=== PATIENT | male | born 1995 | race Caucasian/White ===

== ENCOUNTER 2021-09-07 08:30 | Outpatient (RCR) | payer BC, SELFPAY ==
--- NOTE | 2021-09-07 09:00 | BH.COMM ---
Communication Note - Communication with Client Communication Note: Met with pt and updated pre-admission screening. Plan to start IOP today. Completed [place] Suicide Scale which shows low risk. Consulted with Dr. Kirkpatrick with plan to admits to IOP with dx of Generalized Anxiety Disorder F41.1
--- NOTE | 2021-09-07 10:05 | BH.SGPN.GN ---
Behaviors/Verbalizations/Mental Status: []Client alert and oriented, casually dressed and groomed. Eye contact fair. Motor activity appropriate. Speech within normal limits. Affect congruent, mood anxious. Thoughts linear, logical, no signs of hallucinations or delusions. Client Response/Progress/Benefit: []Client responded well to session AEB client taking notes and listening attentively to others. Group discussed the origin of coping skills, examples of unhealthy coping, and why we use them. Client participated in experiential activity, and was attentive throughout group processing, taking notes and nodding throughout discussion of the importance of external supports and internal coping skills. Appeared to benefit from increased knowledge of internal coping skills and external supports, as well as increased self awareness.Client will continue IOP treatment to increase anxiety management skills and increase comfortability with being vulnerable. Narrative Note: []
--- NOTE | 2021-09-07 11:10 | BH.SGPN.GN ---
Behaviors/Verbalizations/Mental Status: []Client alert and oriented, casually dressed and groomed. Eye contact good. Motor activity appropriate. Speech within normal limits. Affect constricted, mood anxious and depressed. Thoughts linear, logical, no signs of hallucinations or delusions. Client Response/Progress/Benefit: []Client responded well to session, taking notes and nodding frequently. Group discussed the different categories of coping skills which included distraction, emotional release, grounding, self-love, and thought challenging. Client's coping skill menu included: building/creating things, exercising, walking and hiking, treating himself, and setting and accomplishing small goals. Appeared to benefit from increasing repertoire of healthy coping skills. Client?s first day of IOP tx. Will continue tx to prevent decompensation, gain healthy coping skills, and increase daily functioning. Narrative Note: []
--- NOTE | 2021-09-08 09:00 | BH.SGPN.GN ---
Behaviors/Verbalizations/Mental Status: [] Eye contact is fair. Motor activity is appropriate. Appearance is casual. Speech is Appropriate. Mood is depressed and anxious. Affect is flat. Thoughts are linear and logical. No evidence of psychosis. Reviewed daily check in sheet and no reports of suicidal ideations or intent. Client Response/Progress/Benefit: [] Pt was a passive participant AEB providing limited input. Appeared attentive to others contributions. Pt stated he did not want to share anything today. Pt did state his emotion today is exhausted. Seemed to benefit from listening to other group members input and skills/strategies that have helped them overcome various issues. pt to continue IOP to improve daily functioning, increase healthy coping and prevent decompensation.
--- NOTE | 2021-09-08 10:12 | BH.NA_ITS ---
Physical Data - Vital Signs Pulse Rate: 64 Blood Pressure: 119/76 - Height/Weight Height: 1.75 m Weight:: 61.235 kg Weight in Pounds: 135.0 lbs Current Medication Compliance - Medication Compliance Do you take your medication as prescribed?: Yes Nutritional History - Appetite Nutritional Instructions:: If client shows signs of a swallowing problem, weight change of 10 pounds or more in the last month, or is on a diabetic diet, the physician will review and request a dietitian consult, as appropriate. All unintentional weight loss will be referred to the physician for decision on need for dietitian consult. Describe your appetite:: Good Functional Assessment - Sleep Pattern Describe any problems with sleeping: Client states he sleeps between 6-8 hours per night. - Activities Motor Activity:: Functional Sensory/Communication Assess - Communication Problems Do you have difficulty understanding what people are saying?: No Medical Problems/History - Metabolic Conditions Metabolic: Other (See comments) - Client states he had an episode in 2018 where he passed out at work and had low blood sugar. Client states he has had episodes of low blood sugar since. - Gastrointestinal Conditions Gastrointestinal: Other (See comments) - GERD - Pain Assessment Do you have acute or chronic pain?: No Surgical History - Surgical History Have you had any surgeries? If so, list type and date:: No Substance Abuse - Substance Abuse Please describe substance abuse in the last 30 days:: Client denies alcohol use. Client states he has been using chewing tobacco for about 8-10 years. Client denies substance use. Client reports minimal caffeine use. Mental Status Summary - Mental Status Significant Findings/Observations on Appearance and Mood:: Client is alert and oriented x 4. Client is wearing a mask due to the pandemic. Client is casually groomed with good hygiene. Client makes good eye contact. Client's voice has normal rate and volume. Client appears to have somewhat flat affect and has normal processing. Client denies delusions/hallucinations. Client denies SI. Suicide Assessment - Suicidal Ideation Are you currently or have you been suicidal in the past?: No Suicidal Intentional Rating Scale (SIRS): No suicidal thoughts (past or present) Physician Notification: If Active suicidal thoughts/Will not contract for safety is checked, contact physician and document in the Physician Notification section below. Assault History/Potential Past Psychiatric History - Treatment Hx Past Psychiatric Medications:: Pristiq, Lexapro, Buspar, Hydroxyzine Age of first mental health symptoms: Client states he first had anxiety after passing out at work in 2018 due to low blood sugar. Current providers for mental health treatment (counselor, psychiatrist, case therapist, etc.): psychiatry at [facility] in [place] Risk Assessment - Age Age: Less than 60 - Mental Status Mental Status: Willing & able to ask for assistance when needed - Physical Status Physical Status: No problems - Impairments Impairments: None - Elimination Elimination: Continent AND independent - Gait or Balance Gait or Balance: Walks independently - Hx of Falls History of falls in the past 6 months: No known history - Medications/Substances Psychotropics:: Antidepressants Medications/substances used within the past 24 hours or ordered to administer: 1-2 of the medications/substances listed above - Total Score Total Points:: 1 RN Summary of Impressions - Impressions Recommendations: Include psychiatric and medical issues, treatment planning recommendations, and discharge planning needs. Impressions: Psychiatric Issues: 1. Generalized anxiety disorder. 2. Panic disorder Impression: General Medical Conditions: Client states he discussed low blood sugars with psychiatry and has been spot checking blood sugars at home at times. Client does state when he feels dizzy/shaky, he does eat some fast acting carbs and follows up with food with protein. Client states he has had a blood sugar of 51, most blood sugars he has checked at home on himself have been 80-110. - Level of Care How do the client's current symptoms and functional deficits support need for this level of care?: Client was referred to IOP by PCP with worsening anxiety. Client states he has been off work since March 2021 due to anxiety. Client states he had anxiety in 2018, but for the last couple of years has felt pretty good until he bought a house in March 2021 that gave him financial concerns. Client also discusses that he has had some low blood sugars and he has health anxiety surrounding that. Client states he does not like to go far from home or go places alone due to fear he will have a panic attack or medical issue that he won't be able to deal with alone. Client states he has panic attacks about 3 times a week that last about 30 minutes with increased HR, arms/legs feel numb, sweating and overall tense. Client has been off work since March 2021 for anxiety. Client denies SI. IOP will promote gains and prevent further decompensation while providing social support and skills training.
[2021-09-08 11:20] VITALS: BP 119/76; PULSE 64
--- NOTE | 2021-09-08 12:14 | BH.PSY.EVA_ITS ---
Psychiatric Evaluation Initial Evaluation Initial Evaluation: History of Present Illness: [] The patient is a 26-year-old single male who was referred to the [facility] behavioral health IOP program by his primary care doctor in June 2021. The patient has a history of anxiety which worsens when he is alone or he is far away from the hospital. The patient's mental health issues began in August 2017 when he had decreased blood sugar while at work and this resulted in severe anxiety and hair and a severe first time initial panic attack. The squad was called and the patient has been anxious ever since this initial panic attack and low blood sugar episode. At the time the patient had worked for 48 days straight and was on third shift and was not eating well. Since that time his anxiety has worsened and he has been unable to work and on FMLA from work since March 2021. 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 His job is somewhat isolated at work and he is not comfortable being alone currently. He has had a girlfriend for 2 years who his supportive. He currently lives with his brother while he renovate a house he bought recently. His parents live across the road. The patient tried medications in the past but they had limited benefit. For primary support he has his father. No history of self-harm. His latest stressor is that he is wants to get back to work eventually because he wants to start renovating the house he bought in February 2021. The patient identifies as a Sikhism Mu-Ism and this is a source of support for him. The patient feels that his mood is normal now and he does not feel that he is currently depressed. He denies hopelessness or worthlessness or guilt currently. He has been isolating himself any enjoys hunting and fishing. His appetite and sleep are okay. His energy level is low but his concentration is okay. He denies guilt, passive thoughts of , suicidal ideation, plan for suicide, homicidal ideation, hallucinations, delusions or symptoms of [place] ever. He is a worrier by nature and he was having panic attacks daily until recently when they decreased to 3 times a week. But his panic attacks are triggered when he has to go far away or be somewhere alone. He had to have someone drive with him to the IOP program as it is a [address] and he is afraid to do it by himself. He denies history of OCD, eating disorder, trauma or PTSD. The patient was worried about having heart attacks when he first began having panic attacks but he he has been somewhat reassured about health issues lately. Current Psychiatric Medications: [] Zoloft 50 mg p.o. daily (x5 days); Xanax 0.25 mg as needed for panic attack (has not taken any yet). These meds were obtained from his psychiatrist last week. Past Psychiatric History: [] No psychiatric admissions. No suicide attempts ever. He has a follow-up appointment with his psychiatrist in 6 weeks. He had counseling for 1 visit only in 2020. Past medications were from his primary care doctor and included Pristiq, Lexapro and BuSpar. Lexapro did not help him. Pristiq helped at first but then the dose was too high and he felt too numb. He first took medications at age 23 in 2018 after his initial panic attack trig gered by low blood sugar episode at work. Substance Use History: [] Non-smoker. He does chew tobacco for the past 10 years. No drugs, no alcohol. No vaping no marijuana. No rehab ever. Allergies: [] No known allergies Medications: [] Vitamin D and Juice Plus vitamins plus psych meds as dictated above. Past Medical History: [] Low blood sugar history, vitamin D deficiency, GERD. No surgeries ever. Blood sugar was documented to be 51 when he had his episode in 2018. Family Psychiatric History: [] Mother is 51 years old and father is 53 years old. There are no psychiatric issues known in the family. The patient has a maternal great grandfather who shot himself to complete suicide many years ago. The patient did not know him. No substance issues in the family. Personal/Social History: [] Patient was born and raised in [place] and describes his childhood as great. Her parents his parents were and living. He has a brother 2 years younger and they are close and get along well. He denies any verbal, physical or sexual abuse ever. He did well in school and graduated high school but did not attend college. 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 He has had a few serious girlfriends including including his current girlfriend of 2 years who is supportive. He has no children and no sexual issues. Legal History: [] He has never been arrested. 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 Review of Systems: [] He has a history of some reflux and nausea issues. Vital Signs: [] Reviewed in nurses notes. Mental Status Examination: [] The patient is a 26-year-old male who is seen wearing a mask due to the pandemic and has a somewhat moderately long ascencio. He is casually dressed and groomed with good hygiene and has no psychomotor agitation or retardation. He is cooperative and pleasant during the interview. Eye contact is good and speech is normal rate and rhythm and fluent with no pressure. Mood is anxious and worried. Affect is constricted. Thought process is goal-directed and organized. Thought content: The patient has no evidence of passive thoughts of , suicidal ideation, homicidal ideation, hallucinations or delusions or plan for suicide. The patient is worried about when he will be able to return to work as he wants to get started on renovating the new house he bought. Reality testing is intact. Intelligence is average or above. Judgment is intact. Insight: Some present. Impulsivity: Low. Diagnoses: [] 1. Generalized anxiety disorder 2. Panic disorder 3. Work and health issues Plan: [] The patient will start the IOP program at [facility] in behavioral health as a structure, support, education, and group therapy will hopefully prevent worsening of the patient's symptoms. He felt safe during the interview and if it anytime he does not feel safe he will let us know or go to the emergency room. The risk, options, possible complications and side effects of the medications were discussed with the patient and he understands and accepts these. No medication changes were made today as the patient has only been on his Zoloft for 5 days. Discussion was had about relaxation techniques and other techniques for overcoming panic attacks and anxiety. The patient will continue to follow-up with his outpatient providers and I will see the patient in follow-up in in 1 to 2 weeks.
--- NOTE | 2021-09-08 12:20 | BH.MTP_ITS ---
Master Treatment Plan - Patient Information Program Physician:: Dr. Chel Kirkpatrick Primary Therapist:: RACHELLE Benedict - Psychiatric Diagnoses Psychiatric Diagnoses:: Generalized anxiety disorder, Panic disorder Diagnosis Code(s):: F 41.1 - Estimated LOS Estimated LOS (in weeks):: 6 Problem/Goal #1 - Problem/Goal #1 Stated Goal:: Client will reduce overall frequency, intensity, and duration of anxiety and intrusive health thoughts so that daily functioning is not impaired. Description of Barriers: No prior mental health tx, intrusive thoughts impacting ability to rationally address anxiety triggers, somatic symptoms which heighten pt anxious thought patterns and often contribute to panic, limited insight into anxiety warning signs and triggers. Functional Impact: Pt is a 26-year-old male who was referred to the [facility] behavioral health IOP program by his primary care doctor in June 2021 for worsening anxiety. Reports a history of anxiety which worsens when alone or far from the hospital due to an episode occurring in August 2017 in which pt blood sugar dropped while at work resulting in his first panic attack. Pt reports the squad was called at this time and he has been afraid of something similar recurring since. At the time the patient had worked for 48 days straight and was on third shift and was not eating well. Since that time his anxiety has worsened and he has been unable to work and on FMLA from work since March 2021. Patient reports he tried medications in the past but they had limited benefit. No history of self-harm. His primary stressor is returning to work. Currently endorsing symptoms of panic 3-7x per week, rumination, fear of traveling too far from a hospital, low energy and concentration, current anxiety impeding ability to drive self places, isolation, and intrusive worries about having a heart attack. Current symptoms impeding ability to work, function at baseline, or travel places he typically would due to fears of being too far from hospital. Goal Relevant Strengths/Supports: Receptive of treatment, open to learning new skills and trying different treatment approaches to addressing anxiety, reports motivation to improve symptom management. - Objectives Objective #1 Stated Objective: Client will identify 2-3 anxiety triggers and 2 coping skills to use when feeling anxious to manage anxiety as shown by reducing DSM-5 scores for anxiety. Interventions: Through group and individual sessions, client will gain awareness of his anxiety triggers and learn numerous techniques to manage anxiety symptoms. Therapist will mindfulness and other calming techniques to manage symptoms and increase distress tolerance skills. Discharge Criteria: Client will have met this goal if client can prevent decompensation as evidenced by stability in DSM-5 scores and when he can identify at least 2 triggers and 2 ways to cope with anxiety. Target Date: 10/19/21 Review Date: 10/12/21 Objective #2 Stated Objective: Client will identify 2-3 intrusive/ruminating thoughts and learn 2-3 strategies to overcome, replace, or reduce the value of those thoughts. Interventions: Therapist will help client increase awareness of cognitive distortions, false comfort, and myths about intrusive thoughts. Therapist will encourage client to focus on stressors in her control and teach client distress tolerance techniques. Therapist will utilize distractions, mindfulness, and CBT- based strategies to help client learn how to more effectively manage and cope with her intrusive, health-related thoughts. Therapist will use a workbook to give client homework and exercises to practice. Discharge Criteria: Client will have met this goal when can report least 2 ways to cope with intrusive thoughts that exacerbate anxiety. Target Date: 10/19/21 Review Date: 10/12/21 Objective #3 Stated Objective: Client will reduce avoidance behaviors that reinforce anxiety by setting 1-2 small exposure goals a week to increase socialization, increase mastery, and reduce anxiety over time. Interventions: Through group and individual sessions, client will learn about the benefits of setting exposure goals to overcome anxiety-producing situations. Therapist will help client create a fear-ladder that will act as a guide in confronting anxiety-producing situations. The fear-ladder will go from least anxiety-producing to most anxiety-producing so client can build confidence. Therapist will help client set SMART goals and challenge barriers. Therapist will use cognitive restructuring techniques and help client gain awareness of negative thoughts that reinforce avoidance behaviors and fear of judgement. Therapist will help client incorporate mindfulness, opposite action, and self- talk strategies to manage anxiety. Discharge Criteria: Client will have accomplished this goal when he can report accomplishing at least one small exposure goal a week. Additionally, client will be able to report decreased avoidance behaviors. Target Date: 10/19/21 Review Date: 10/12/21
--- NOTE | 2021-09-08 12:24 | BH.DR.ITP ---
Initial Treatment Plan Patient Information Visit Information: ADMISSION DATE: EXPECTED LOS: 4-6 weeks Problems/Symptoms Problem #1:: Anxiety Symptom:: Worry, panic attacks, avoidance, low energy
--- NOTE | 2021-09-13 16:02 | BH.COMM ---
Communication Note - Communication with Client Communication Note: Client scheduled for both group and individual session on this date; however called to cancel due to testing positive for COVID-19. Client will therefore be out for the week and will be seen for individual session upon his projected return date, 09/20/21.
--- NOTE | 2021-09-20 09:00 | BH.SGPN.GN ---
Behaviors/Verbalizations/Mental Status: []Eye contact is good. Motor activity is appropriate. Appearance is casual. Speech is appropriate. Mood is exhausted. Affect is flat. Thoughts are linear and logical. No evidence of psychosis. Reviewed daily symptom tracker sheet with no reports of suicidal ideations, plan, or intent. Client Response/Progress/Benefit: []Client was engaged throughout group session. Client reported his emotion as ?exhausted?. Client discussed that he took care of his family members when they all had COVID last week as he had mild symptoms, and that he has been feeling overwhelmed. Client struggles to set boundaries with others. Client appeared to benefit from group discussion regarding self care. Client discussed watching tv as self care. Progress noted AEB client reporting utilizing self-care. Will continue IOP treatment to increase utilization of self care and increase healthy boundary setting to improve overall functioning. Narrative Note: []
--- NOTE | 2021-09-20 10:05 | BH.SGPN.GN ---
Behaviors/Verbalizations/Mental Status: []Client alert and oriented, casually dressed and groomed. Eye contact fair. Motor activity appropriate. Speech within normal limits. Affect constricted, mood anxious. Thoughts linear, logical, no signs of hallucinations or delusions. Client Response/Progress/Benefit: []Pt was a semi-active participant in group discussion, taking notes but providing limited input throughout. Attentive during psychoeducation on communication styles. Along with peers, pt participated in providing insight into the benefits to effective communication on mental health which included; helps us get needs met, resolves problems, improves relationships, maintains boundaries, and prevents additional conflict. Pt identified he is most often a passive communicator. Pt stated this keeps him from asking for help and will isolate. Benefited from increased awareness of different communication barriers, styles, and the importance of communicating effectively to improve mental wellness. Will continue IOP tx to increase healthy coping skills, decrease anxiety and prevent decompensation.
--- NOTE | 2021-09-20 11:05 | BH.SGPN.GN ---
Behaviors/Verbalizations/Mental Status: []Client alert and oriented, casually dressed and groomed. Eye contact fair. Motor activity appropriate. Speech within normal limits-soft. Affect constricted, mood anxious. Thoughts linear, logical, no signs of hallucinations or delusions. Client Response/Progress/Benefit: []Pt was an active participant in group discussion. Attentive during psychoeducation on communication styles (Passive, Passive-Aggressive, Aggressive, and Assertive) and benefits/disadvantages to each style. Pt reflected on how his passive communication style has impacted his mental health and relationships. Participated in the group activity and learned DEAR MAN skill. Pt reports wanting to work on the negotiate component of this skill by looking at the facts and being willing to compromise. Benefited from learning DEAR MAN and setting a goal to improve communication. Will continue IOP tx to prevent decompensation, reduce avoidance, and increase communication skills. Narrative Note: []
--- NOTE | 2021-09-20 13:21 | BH.COMM ---
Communication Note - Communication with Client Communication Note: Unable to meet individually with client as this therapist has tested positive for COVID-19 and therefore will be in quarantine until 09/30/20. Therapist to work remotely and Pt given option to meet via telehealth during that time. Will follow-up to schedule accordingly.
--- NOTE | 2021-09-22 12:40 | BH.PSA ---
Source of Information - Presenting Problems/Circumstances Problems, Referral Source, Mental Status, Client: Pt is a 26-year-old male who was referred to the [facility] behavioral health IOP program by his primary care doctor in June 2021 for worsening anxiety. Psychiatric Presentation - Psych Issues & Need for Admission Psychiatric Issues:: Anxiety, rumination, panic Past Psychiatric History - MH Treatment Hx Treatment History: He had counseling for 1 visit only in 2020, denies this being helpful. Does see an outpatient psychiatrist. Pt denies inpatient hospitalization but has been seen at the ER for panic in the past First hospitalization:: denies Most recent hospitalization:: denies Medication Trials:: Yes - pristiq ECT Therapy:: No Age of first mental health symptoms: age 23 in 2018 after his initial panic attack triggered by low blood sugar Development & Family of Origin - Childhood Significant Childhood Events: Reports childhood as positive and supportive. Denies any abuse or trauma hx. The patient has a maternal great grandfather who shot himself to complete suicide many years ago. The patient did not know him. - Family Who currently lives in your home?: Lives with his brother, 2 years younger, while pt completes renovations on a home he recently purchased. Describe family composition:: Patient was born and raised in [place] and describes his childhood as great. His parents are and living. He has a brother 2 years younger and they are close and get along well. Has a current girlfriend of 2 years. - Family History Family Hx of Psychiatric or AOD Problems: There are no psychiatric issues known in the family. The patient has a maternal great grandfather who shot himself to complete suicide many years ago. The patient did not know him. No substance issues in the family. Ethnicity - Culture Do you identify yourself with any particular cultural, ethnic background, or community?: No - Sexuality Sexual Orientation: Heterosexual Spirituality - Rastafarian Do you currently identify with any organized pentecostal?: Latter-Day - Beliefs Is there a particular form of support from this community you can use for your recovery?: Yes Mental Status - Memory Recent Memory: Good Remote Memory: Fair - Concentration Concentration: Fair - Eye Contact Eye Contact: Good - Speech Speech: Congruent - Thought Process Thought Process: Logical Insight: Fair Judgment: Fair Behavior: Anxious - Orientation Orientation: Time, Person, Place, Situation - Appearance Appearance: Appropriate - Mood Mood: Anxious - Affect Affect: Appropriate/calm Suicide Assessment - Suicidal Ideation Have you ever felt like hurting yourself?: No Were you using ETOH/drugs at the time?: No Suicidal Intentional Rating Scale (SIRS): No suicidal thoughts (past or present) Physician Notification: If Active suicidal thoughts/Will not contract for safety is checked, contact physician and document in the Physician Notification section below. Violent Behavior/Abuse History - Homicidal Ideation Do you have any homicidal thoughts? If so, explain:: No Is there a known potential victim? If yes, who:: No - Abuse Have you ever been abused?: No - Life Events Are there any other significant life events?: Financial loss - currently on FMLA due to anxiety, Hardships - panic attack impacting ability to work - Safety Do you ever feel threatened in your home? If yes, describe:: No Adult Social History - Age 18 to Present Describe your current support system:: Reports his family, girlfriend, adventism, and some close friends as supports Substance Use - Substance Substance Use Type: Tobacco - has chewed tobacco for the past 10 years, Caffeine - IV Substance Use Do you have a history of IV use?: Denies Leisure/Social Activities - Interests What do you enjoy or might be interested in learning about?: Skills for better managing anxiety, reports interests in hunting, fishing, and being outdoors Education & Occupational Histo - Education What is your level of education?: High School Do you have any learning disabilities?: No - Occupation List any current or past employment:: 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 If yes, describe:: No - Court Orders Have you had any past court orders for psychiatric treatment?: No Do you have a present court order for psychiatric treatment?: No Problem Checklist - Current Problem Areas Problem List: Anxiety, Additional psychosocial stressors - somatic related stressors, worry about returning t o work Discharge Planning Needs - Anticipated Follow-Up Family and Caregiver Contacts:: Tiff Colón, Mother Release of Information Signed:: Yes Carbide Operator's Assessment - Client's Needs What are the client's feelings about the program?: Reports feeling the program has been helpful so far and that he is looking forward to learning more about his mental health and better understanding how ton manage his anxiety so that it is not impacting his daily functioning. What are the client's goals?: Better understand and learn skills for managing anxiety, return to work Diagnoses - Diagnoses Diagnosis #1:: Generalized Anxiety Disorder Diagnosis #2:: Panic Disorder Interpretive Summary - Interpretive Summary Interpretive Summary: Pt is a 26-year-old male who was referred to the [facility] behavioral health IOP program by his primary care doctor in June 2021 for worsening anxiety. Reports a history of anxiety which worsens when alone or far from the hospital due to an episode occurring in August 2017 in which pt blood sugar dropped while at work resulting in his first panic attack. Pt reports the squad was called at this time and he has been afraid of something similar recurring since. At the time the patient had worked for 48 days straight and was on third shift and was not eating well. Since that time his anxiety has worsened and he has been unable to work and on FMLA from work since March 2021. Patient reports he tried medications in the past but they had limited benefit. No history of self-harm. His primary stressor is returning to work. Currently endorsing symptoms of panic 3-7x per week, rumination, fear of traveling too far from a hospital, low energy and concentration, current anxiety impeding ability to drive self places, isolation, and intrusive worries about having a heart attack. Current symptoms impeding ability to work, function at baseline, or travel places he typically would due to fears of being too far from hospital. Treatment Plan Recommendations - Recommendations Guidelines: Special needs identified to be included in the development of an individualized treatment plan regarding past psychiatric history and treatment, developmental events, family relationships/events/culture, past and/or current educational, occupational, social, and residential experience, and legal status. Recommendations:: Client will have accomplished this goal when he can report accomplishing at least one small exposure goal a week. Additionally, client will be able to report decreased avoidance behaviors.
== END 2021-09-20 23:59 ==
LOC: BHIOP 08:30
PROVIDERS: Visit Provider Psychiatry & Neurology Psychiatry
DX: F41.1 Generalized anxiety disorder (principal)
CPT/HCPCS: S9480; 90853

== ENCOUNTER 2021-09-21 07:31 | Outpatient (RCR) | payer BC, SELFPAY ==
[2021-09-21 00:49] VITALS: BP 119/76; PULSE 64
--- NOTE | 2021-09-21 09:00 | BH.SGPN.GN ---
Behaviors/Verbalizations/Mental Status: []Eye contact is good. Motor activity is appropriate. Appearance is casual. Speech is Appropriate. Mood is euthymic, slightly anxious. Affect is congruent. Thoughts are linear and logical. No evidence of psychosis. Reviewed daily check in sheet and no reports of suicidal ideations or intent. Client Response/Progress/Benefit: []Pt was an active participant in group discussion. Attentive. Provided appropriate feedback. Pt identified mental health positive as having decreased anxiety yesterday and this morning. Pt stated driving is an anxiety trigger but since driving to IOP several times now he reported his anxiety seems to be improving. Pt reported stressors are money issues because has been off work since March due to his anxiety. Progress noted AEB pt reporting noticing mild decrease in anxiety when driving to IOP. Benefited from group support and encouragement. Pt to continue IOP to increase anxiety management skills, assist pt with learning tools to help him return to work and prevent decompensation.
--- NOTE | 2021-09-21 10:07 | BH.SGPN.GN ---
Behaviors/Verbalizations/Mental Status: [] Client alert and oriented, casually dressed and groomed. Eye contact good. Motor activity appropriate. Speech within normal limits. Affect congruent, mood anxious and depressed. Thoughts linear, logical, no signs of hallucinations or delusions. Client Response/Progress/Benefit: [] Pt continues to appear anxious about being in the group setting, however did well to remain engaged throughout. Pt was taking notes, listening attentively, and providing some input throughout. Attentive during psychoeducation and discussed the importance of goal-setting with the group. Pt indicated ?Goals help you see progress?. Group identified potential benefits of having goals include: they motivate, increase self-esteem, provide a sense of accomplishment, help feel more positive, lead to personal growth, and provide a sense of purpose. Group also worked together to identify barriers to goal-setting which included; negative self-talk, lack of motivation, fear of failure, unrealistic expectation, and past negative experiences. Pt identified personal barrier to include not having ?enough time? or external triggers. Benefited from increased awareness of benefits and barriers to goal-setting. Pt will continue in IOP to prevent decompensation, learn healthy coping skills for improving mood management, and improve daily functioning. Narrative Note: []
--- NOTE | 2021-09-21 11:13 | BH.SGPN.GN ---
Behaviors/Verbalizations/Mental Status: Client alert, oriented, casually dressed and groomed. Eye contact fair to good. Motor activity appropriate. Speech within normal limits. Affect constricted, mood depressed and anxious. Thoughts linear, logical, no signs of hallucinations or delusions.[] Client Response/Progress/Benefit: [] Pt was a active participant in group discussions and activities. Engaged in activity and able to make connections with goal setting in daily life. Was willing to complete the goal setting worksheet provided. Pt identified a SMART goal for the next week is: Take time to listen to a podcast, reflect on daily wins, and plan for the next day each night before bed over the next week. Pt reported this would benefit her by improving positivity at the end of the day, reduce anxiety in the morning, and feeling more organized. Identified stress and not prioritizing it as potential barriers. Pt able to identify several solutions that can help overcome identified barriers such as: thought challenging, planning time ahead, and reminding himself of the benefits. Benefited from group by being able to utilize SMART formula to create a goal. Pt to continue IOP to stabilize moods, increase healthy coping skills and self-confidence, improve stress managemnt, and prevent decompensation. Narrative Note: []
--- NOTE | 2021-09-22 09:03 | BH.SGPN.GN ---
Behaviors/Verbalizations/Mental Status: []Eye contact is good. Motor activity is appropriate. Appearance is casual. Speech is appropriate. Mood is anxious. Affect is flat. Thoughts are linear and logical. No evidence of psychosis. Reviewed daily symptom tracker sheet with no reports of suicidal ideations, plan, or intent. Client Response/Progress/Benefit: []Client was engaged throughout group session, sharing and listening attentively to others. Client reported his emotion of the day as ?overwhelmed?. Client stated that he is working on a house that needs to be completely redone, and taking care of his family members. Client struggles to set boundaries with supports. Progress noted AEB client stating that he set a bedtime and will not accept calls past his bedtime. Client reports watching a show after going to his room for bed as self care. Appeared to benefit from group discussion regarding boundary setting. Will continue IOP treatment to increase boundary setting and healthy communication skills to increase daily functioning. Narrative Note: []
--- NOTE | 2021-09-22 10:10 | BH.SGPN.GN ---
Behaviors/Verbalizations/Mental Status: []Eye contact is good. Motor activity is appropriate. Appearance is casual. Speech is Appropriate. Mood is anxious. Affect is congruent. Thoughts are linear and logical. No evidence of psychosis. Client Response/Progress/Benefit: []Engaged in experiential activity with peers. Passive participant in group discussion. Attentive during psychoeducation on what is social support, the benefits of social support, and the things that keep us from utilizing social support for mental wellness. Attentive during interaction discussion and feedback from peers on these subjects AEB head nodding and note-taking. Pt identified social support can provide a healthy distraction at times. Able to see connection between experiential activity and group topic. Benefited from increased awareness of the benefits of social support in maintain mental health. Will continue in IOP to decrease anxious symptoms, assist pt with returning to work successfully, continue use of healthy coping skills and prevent decompensation. Narrative Note: []
--- NOTE | 2021-09-22 11:10 | BH.SGPN.GN ---
Behaviors/Verbalizations/Mental Status: []Client alert and oriented, casually dressed and groomed. Eye contact good. Motor activity appropriate. Speech within normal limits-soft. Affect constricted, mood anxious. Thoughts linear, logical, no signs of hallucinations or delusions. Client Response/Progress/Benefit: []Client was an active participant throughout AEB contributing to discussion, providing personal examples, and taking notes. Client did well to relate group topic and activity back to own experiences. Client provided input during discussion on the types of support our supports can provide. Client reports wanting to work on increasing social supports, noting this will give client a distraction, increase motivation, and improve communication. Client plans to improve this support area by finding a group of archers in the area, going camping with friends, and joining a gym. Client seemed to benefit from identifying the type of support and how this support will aid in promoting overall mental wellness. Will continue IOP tx to prevent decompensation, increase interpersonal relationship skills, and reduce negative thinking patterns. Narrative Note: []
--- NOTE | 2021-09-22 11:39 | PCM.BH.PN ---
Progress Note Progress Note: History of Present Illness/Interim History: The patient is a 26-year-old single male with a history of anxiety who is seen in follow-up at the [facility] behavioral health IOP program. I last saw the patient 2 weeks ago. The patient had Covid last week so he was not here but he said that he had overall very mild symptoms from the Covid and that he was anxious and worried about getting Covid but he actually ended up doing fine. Mental health issues continue with the anxiety but he says he feels that he is a little bit better than he was 2 weeks ago. He still very anxious and worried especially in the morning. He still having panic attacks a few times a week. 1 in his wallet and this is hel He has only taken 1 Xanax in the last 2 weeks[address]ped him be able to drive places because he knows he has it in case he gets a severe panic attack. He has been carrying the Xanax His mood remains euthymic. Appetite and sleep are okay. what he describes as He denies passive thoughts of , suicidal ideation, homicidal ideation, hallucinations, delusions. His panic attacks continue to be more likely to be triggered when he has to drive somewhere along or be somewhere alone. He feels he is benefiting from the IOP program and is learning valuable skills to help with his anxiety. Zoloft 50 mg p.o. daily (for almost 3 weeks now); Xanax 0.25 mg as needed for panic attack (took 1 in the last 2 weeks)[] Mental Status Examinati the patient is [ a 26-year-old male who appears normal for stated age and is seen wearing a mask due to the pandemic. He is casually dressed and groomed with good hygiene. He has no psychomotor agitation or retardation. Eye contact is good and speech is normal rate and rhythm and fluent with no pressure. Mood is Thought content: mildly anxious and worried. Affect is constricted. Thought process is goal-directed and organized. or delusions. The patient has no evidence of passive thoughts of , suicidal ideation, homicidal ideation, hallucinations Patient wants to get better so that he can return to work soon. Reality testing is intact. Judgment is intact. Insight: Improving. Impulsivity: Low.] 1. Generalized anxiety disorder Diagnoses: [ ] 2. Panic disorder 3. Work and health issues the patient will continue the IOP program at [facility] as the structure, support, education and group therapy will hopef prevent worsening of the patient's symptoms. He felt safe during the interview and if it anytime he does not feel safe he will let us know or go to the emergency room. The risks, options, possible complications and side effects of medications were again discussed with the patient and he understands and accepts these. in the hopes of improving his anxiety The patient agrees to increase his Zoloft to 100 mg daily further. He will continue to follow-up with his outpatient providers and I will see the patient in follow-up in 2 weeks and as needed. Plan: []
--- NOTE | 2021-09-23 10:48 | BH.MDN_ITS ---
Multi-Disciplinary Note - Note 30-min Individual Time Started:: 09:00 Date: 09/23/21 Purpose of session/treatment goals addressed:: The purpose of this session was to gather information on client's current stressors, symptoms, and treatment goals. Another goal was to build rapport and provide psychoeducation on cycle of anxiety, as well as begin introducing diaphragmatic breathing and grounding techniques for anxiety. Eye Contact:: Good Motor Activity:: Appropriate Appearance:: Casual Speech:: Appropriate Mood:: Euthymic, Anxious Affect:: Congruent Thoughts:: Linear, Logical, No evidence of hallucinations/delusions noted Staff Interventions:: psychoeducation on: - Cycle of anxiety, mindfulness skills - introduced grounding and practiced 5-senses skill with pt., treatment planning, goal setting, taught coping skills - taught diaphragmatic breathing techniques Client Response:: Pt responded well to session, open to meeting with therapist via telehealth as therapist working remotely due to COVID-19 quarantine. Pt rep orts feeling ?pretty good? about the IOP program so far and indicated learning information on healthy coping skills and different types of support to particularly helpful thus far. Shared that he is looking forward to gaining additional skills for better managing symptoms of anxiety. Pt discussed events leading up to treatment including increased anxiety and panic over the past two years following an incident in which pt?s blood sugar levels dropped and he had a panic attack at work. Explained he had been working alone on third shift at that time and ended up passing out with no one around. Pt was found by his supervisor money room as he had alerted them he was not feeling well several minutes prior. Reports increased anxiety about a similar even occurring again, which has impeded his ability to work or complete responsibilities at times. Pt currently on FMLA since March as a result. Shared struggling to travel too far from home as he becomes anxious about not being close to the hospital should he have another panic episode. Notes anxiety is worse in morning hours as well. Pt did well to identify warning signs for his anxiety such as chest tightness, racing thoughts, and ?feeling like I can?t breathe? causing him to then panic. Receptive of discussion reviewing the cycle of anxiety and identifying his own anxious thoughts which maintain anxiety. Additionally, identified connection between his anxious thoughts and physical sensations of anxiety. Connected with diaphragmic breathing and expressed willingness to practice this for homework. Declined finding anything helpful for symptom management outside of talking with his supports. Denies trying much else. Receptive of psychoeducation on grounding and it?s benefits in managing anxiety. Practices 5-senses skills with therapist and willing to practice using 2-3 grounding skills over the next week as homework. Risks/Concerns:: None noted. Pt denies SI/HI, plan, or intent as of this date. Future oriented and protective factors noted Progress Toward Goals/Plan:: Client reports improved mood and reduced anxiety since beginning IOP tx. Believes current medication has been helpful and is glad he has increased Zoloft to 100mg. Discussed wanting to work towards returning to work but continues to struggle with constant worry/rumination, avoidance, difficulties leaving the home, and panic. Client would like to work on improving his understanding of and ability to manage anxiety. Receptive of learning ad beginning to incorporate various grounding skills in his daily life. Client will continue IOP tx to reduce panic, improve anxiety management, and better identify and replace safety behaviors reinforcing anxiety. Time Stopped:: 10:03
--- NOTE | 2021-09-27 09:00 | BH.SGPN.GN ---
Behaviors/Verbalizations/Mental Status: [] Eye contact is good. Motor activity is appropriate. Appearance is casual. Speech is appropriate. Mood is euthymic. Affect is flat. Thoughts are linear and logical. No evidence of psychosis. Reviewed daily symptom tracker sheet with no reports of suicidal ideations, plan, or intent. Client Response/Progress/Benefit: [] Client was engaged throughout group session, sharing and listening attentively to others. Client reported his emotion as ?hopeful?. 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 Client reports that this work was overwhelming, but that he broke it down to one task at a time to reduce his stress. Appeared to benefit from group discussion of methods to help cope with feeling overwhelmed. Progress noted AEB client reporting breaking down tasks as a way to reduce stress. Will continue IOP treatment to increase boundary setting and healthy communication skills to improve overall functioning. Narrative Note: []
--- NOTE | 2021-09-27 10:00 | BH.SGPN.GN ---
Behaviors/Verbalizations/Mental Status: []Eye contact is fair. Motor activity is appropriate. Appearance is casual and grooming tended to. Speech is Appropriate. Mood is anxious. Affect is constricted. Thoughts are linear and logical. No evidence of psychosis Client Response/Progress/Benefit: []Pt was an engaged participant AEB providing input at times during group discussion and was attentive to others comments. Pt appeared attentive AEB taking notes during psychoeducation about cognitive distortions. Pt seemed to benefit from increased awareness of cognitive distortions and the role that they play on our behaviors and emotions. Shared top three personal distortions uses the most includes: jumping to conclusions, should/must, and personalization. Will continue IOP tx to improve daily functioning, decrease anxious symptoms and prevent decompensation.
--- NOTE | 2021-09-27 11:15 | BH.SGPN.GN ---
Behaviors/Verbalizations/Mental Status: []Client alert and oriented, casually dressed and groomed. Eye contact good. Motor activity appropriate. Speech within normal limits-quiet. Affect constricted, mood anxious and euthymic. Thoughts linear, logical, no signs of hallucinations or delusions. Client Response/Progress/Benefit: []Pt active throughout session, taking notes and contributing examples. Pt was an actively engaged participant in Cognitive Distortions Jeopardy and utilized notes from psychoeducation on cognitive distortions to assist peers in correctly answering questions. Experiential activity was beneficial as it provided a way for pt to review notes and handouts during psychoeducation to answer questions for the game. Pt reflected on today?s topic and wrote his biggest take away from session was ?to stop blowing things out of proportion? and to think more realistically. Pt was given a thought log to complete for homework. Will continue in [facility] tx to promote the use of healthy coping skills, reduce avoidance, and increase self-confidence. Narrative Note: []
--- NOTE | 2021-09-28 09:05 | BH.SGPN.GN ---
Behaviors/Verbalizations/Mental Status: [] Eye contact is good. Motor activity is appropriate. Appearance is casual. Speech is Appropriate. Mood is anxious. Affect is congruent. Thoughts are linear and logical. No evidence of psychosis. Reviewed daily check in sheet and no reports of suicidal ideations or intent. Client Response/Progress/Benefit: [] Pt participated at times during group discussion. Attentive. Emotion for today is hopeful but nervous. He discussed his anxiety about returning to work and being on FMLA since 03/2021. Had a discussion with his FMLA provider about his short-term benefits stopping and moving to long-term. He wants to get back to work and is hopeful that skills learned in this program will help him. He notes progress in managing his anxiety and increased confidence. Progress noted. Benefited from group support, encouragement, and feedback. Will continue in IOP to prevent decompensation, increase healthy coping, and improve functioning to return to work. Narrative Note: []
--- NOTE | 2021-09-28 10:00 | BH.SGPN.GN ---
Behaviors/Verbalizations/Mental Status: [] Eye contact is fair. Motor activity is appropriate. Appearance is casual. Speech is Appropriate. Mood is anxious. Affect is constricted. Thoughts are linear and logical. No evidence of psychosis. Client Response/Progress/Benefit: [] Pt was an engaged participant AEB pt attentively listening to others and added contributions at times to discussion. Attentive during psychoeducation. Pt participated in group discussion in which group defined fixed mindset and provided insight on how a fixed mindset could impact mental health and result in. Engaged in group discussion about growth mindset, helping group identify impact grown mindset can have on mental health. Pt shared one of his fixed mindset thoughts is I'm never going to get better. Pt reported this thought leads him to isolate and doubt himself. Pt reported he also struggles with giving himself any credit for positives. Benefited from increased awareness on the role of fixed mindset on mental health. Will continue in IOP to decrease anxious symptoms, continue using calming skills and prevent decompensation.
--- NOTE | 2021-09-28 11:05 | BH.SGPN.GN ---
Behaviors/Verbalizations/Mental Status: []Client alert and oriented, casually dressed and groomed. Eye contact good. Motor activity appropriate. Speech within normal limits. Affect congruent, mood euthymic and anxious. Thoughts linear, logical, no signs of hallucinations or delusions. Client Response/Progress/Benefit: []Client engaged during activity and discussion. Client worked in small group to apply skills learned to reframe own personal fixed thoughts. Appeared to benefit from suggestions provided by peers and from providing ideas to peers in return. Client identified fixed thoughts including ?I?m never going to get better.? client practiced reframing these fixed thoughts using growth-mindset strategies and identifying the distortions. Reframed fixed thoughts and shared ?I?m working on getting better and it takes time.? Benefitted from discussing benefits of growth mindset and brainstorming strategies for prompting growth-mindset. Will continue IOP tx to reinforce healthy coping skills, reduce negative thinking, and increase self-confidence. Narrative Note: []
--- NOTE | 2021-09-30 09:05 | BH.SGPN.GN ---
Behaviors/Verbalizations/Mental Status: [] Eye contact is good. Motor activity is appropriate. Appearance is casual. Speech is Appropriate. Mood is depressed. Affect is flat. Thoughts are linear and logical. No evidence of psychosis. Reviewed daily check in sheet and no reports of suicidal ideations or intent. Client Response/Progress/Benefit: [] Pt participated when prompted. Attentive. Emotion for today is hopeful. Mental health win is that he managing a significant stressor. Shared some conflict with regarding his FMLA which has resulted in him not receiving any pay for 6 weeks. Ruminating and catastrophizing. Its been hard not to go down the rabbit hole, however he has attempted some newly learning coping skills. While he continues to be anxious and worried he has not had a panic attack and continues to function. Progress noted per pt report. Benefited from group support, encouragement, and feedback. Will continue in IOP to improve functioning to return to work, increase healthy coping, and prevent decompensation. Narrative Note: []
--- NOTE | 2021-09-30 11:15 | BH.SGPN.GN ---
Behaviors/Verbalizations/Mental Status: []Client alert and oriented, casually dressed and groomed. Eye contact good. Motor activity appropriate. Speech within normal limits. Affect constricted, mood euthymic and anxious. Thoughts linear, logical, no signs of hallucinations or delusions. Client Response/Progress/Benefit: []Client receptive of session, engaged throughout AEB client actively listening and contributing to discussion, as well as taking notes. Client completed worksheet identifying personal pitfalls impacting mental health progress. Client identified the following pitfalls: avoiding stressors, not asking for help/shutting down, and procrastination. Group learned different coping skills to help manage pitfalls. Client selected shutting down as the pitfall client wants to overcome. Client plans to work on this by accomplishing small goals and listing the consequences of shutting down. Benefited from identifying personal pitfalls and strategies to overcome these pitfalls. Will continue IOP tx to reinforce healthy coping skills, reduce distortions, and further improve work-related functioning. Narrative Note: []
--- NOTE | 2021-09-30 13:47 | BH.MDN ---
Multi-Disciplinary Note - Note 45-min Individual Time Started:: 10:28 Date: 09/30/21 Purpose of session/treatment goals addressed:: The purpose of this session was to gather information on client's current stressors, symptoms, and treatment goals. Addressed return to work plan and anxiety related to return to work. Eye Contact:: Good Motor Activity:: Appropriate, Other Appearance:: Neat, Casual Speech:: Appropriate Mood:: Euthymic, Anxious Affect:: Congruent Thoughts:: Linear, Logical, No evidence of hallucinations/delusions noted Staff Interventions:: thought challenging, motivational interviewing, CBT techniques, strengths perspective, other - normalized and addressed anxieties related to return to work. Discussed plan for intermittent return to work beginning 10/18 Client Response:: Pt responded well to session, open to meeting with therapist and remained actively engaged throughout. Discussed feeling overall positive and is seeing improvements in his mental health since beginning IOP tx. Identified reduction in number of panic attacks from multiple daily to 1-2/week. Noted successfully preventing a panic attack when experiencing increased anxiety the previous date. Shared becoming anxious after being told his FMLA pays will continue to be held until his insurer receives additional documentation. Pt described becoming overwhelmed and angry in the moment which initially led to pt shutting down, but that after taking a 10-15 minute break and using some of the grounding skills he has learned was able to return to what he was doing. Noted he would have typically escalated to point of panic and ruminating the remainder of the day. 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 Shared feeling anxious about identifying a concrete return to work date as he feels he is getting closer to being ready to return and that financial stress is beginning to build as well. Discussed with pt his needs upon returning to work and easing him into it rather than going back full-time. Share anxiety about his readiness to return and fear of not being able to maintain his progress. Spent time working with client to challenge distortions reinforcing work related anxiety. Pt expressed wanting to take two more weeks to create a more concrete return to work plan as well as continue to build his skill base and consistent application. Plan is for pt to return 2 days on 10/18/21 and the 3 days the following week, he will attend the IOP program on dates he is not scheduled to work. Risks/Concerns:: None noted. Pt denies SI/HI, plan, or intent as of this date. Future oriented and protective factors noted Progress Toward Goals/Plan:: Progress noted. Pt reports continued improvements in ability to manage stressors and anxiety triggers. Discussed reduction in panic attacks and improved confidence in his ability to cope in times of increased anxiety. Client discussed wanting to begin working towards returning to work which is progress as well. Tentative return date at intermittent 2 on 3 off scheduled on 10/18/21. Client reports improved mood and reduced anxiety since beginning IOP tx. Believes current medication has been helpful and is glad he has increased Zoloft to 100mg. Discussed wanting to work towards returning to work but continues to struggle with constant worry/rumination, avoidance, difficulties leaving the home, and panic. Client would like to work on improving his understanding of and ability to manage anxiety. Receptive of learning ad beginning to incorporate various grounding skills in his daily life. Client will continue IOP tx to improve anxiety management in preparation for return to work, maintain stability, and prevent decompensation. Time Stopped:: 11:05
--- NOTE | 2021-10-04 09:00 | BH.SGPN.GN ---
Behaviors/Verbalizations/Mental Status: []Client alert and oriented, casually dressed and groomed. Eye contact good. Motor activity appropriate. Speech within normal limits. Affect constricted, mood euthymic. Thoughts linear, logical, no signs of hallucinations or delusions. Reviewed client?s symptom tracker, no risk for suicidal ideation, plan, or intent as of 10/04/21 Client Response/Progress/Benefit: []Client responded well to session, attentive and contributing. Client reports feeling tired this morning, but shared he had an eventful weekend. Client went out to dinner, worked at his house, went to the store, and spent time around people. Client initially minimized the significance of this, but then recognized these were all things he was unable to do a month ago. Client shared practicing deep breathing and using opposite action helps client in the moment. Denied any stressors today, but shared he might need a nap later. Appeared to benefit from reflecting on progress. Will continue IOP tx to further improve daily functioning, reduce negative self-talk, and increase self-confidence. Narrative Note: []
--- NOTE | 2021-10-04 10:08 | BH.SGPN.GN ---
Behaviors/Verbalizations/Mental Status: []Client alert and oriented, casually dressed and groomed. Eye contact good. Motor activity appropriate. Speech within normal limits. Affect flat, mood euthymic. Thoughts linear, logical, no signs of hallucinations or delusions. Client Response/Progress/Benefit: []Client responded well to session AEB sharing and listening attentively to others. Client participated in experiential activity illustrating resilience, providing problem solving strategies and supportive feedback to others. Client participated in group discussion processing activity, sharing how it is easy to focus on the negative instead of on regrouping and continuing on. Client participated in group discussion of where resilience comes from, its benefits, and the barriers to building resilience. Clinician provided psychoeducation on ten strategies to increase resilience. Appeared to benefit from increased knowledge of strategies to build resilience. Will continue IOP treatment to decrease negative self talk and increase self-efficacy to improve overall functioning, and successfully transition back to work. Narrative Note: []
--- NOTE | 2021-10-04 11:07 | BH.SGPN.GN ---
Client responded well to session AEB contributing to discussion and completing the resilience worksheet provided. Client participated in the discussion of how each resiliency component can help increase personal resiliency. Worked cooperatively with group to identify strategies to enhance each of the components discussed. Client identifying doing well with the resilience components of: Move towards your goals and take care of yourself. Went on to reflect wanting to improve in the personal resilience component of ?maintain a hopeful outlook?. Client stated he wants to work on this by identifying and continuing to remind himself of his goals for his future. Client seemed to benefit from discussing strategies for improving personal resilience. Will continue IOP tx to prevent decompensation, continue to promote application of healthy coping skills, and improve anxiety management as he transitions back to work.Client alert and oriented, casually dressed and groomed. Eye contact fair to good. Motor activity appropriate. Speech within normal limits, quiet. Affect congruent, mood anxious. Thoughts linear, logical, no signs of hallucinations or delusions Behaviors/Verbalizations/Mental Status: [] Client Response/Progress/Benefit: [] Narrative Note: []
--- NOTE | 2021-10-05 09:10 | BH.SGPN.GN ---
Behaviors/Verbalizations/Mental Status: [] Eye contact is good. Motor activity is appropriate. Appearance is casual. Speech is Appropriate. Mood is anxious. Affect is flat. Thoughts are linear and logical. No evidence of psychosis. Reviewed daily check in sheet and no reports of suicidal ideations or intent. Client Response/Progress/Benefit: [] Pt participated when prompted. Attentive. Daily symptom tracker notes 11/23 for anxiety. States yesterday was a decent day. Able to complete tasks with his father. Shared with the group increased fatigue in the past week w/o known trigger. I wonder why?. Group was helpful and normalizing fatigue during winter months and encouraged him to monitor but to focus too much as there could be many causes to fatigue. Pt was drinking an energy which led to a discussion on caffeine and mental health. Group provided examples of how caffeine consumption can impact emotions and how the crash can lead to fatigue. Some progress noted. Benefited from group support and feedback. Will continue in IOP to prevent decompensation and improve functioning to return to work. Narrative Note: []
--- NOTE | 2021-10-05 10:15 | BH.SGPN.GN ---
Behaviors/Verbalizations/Mental Status: []Client alert and oriented, casually dressed and groomed. Eye contact good. Motor activity appropriate. Speech within normal limits. Affect congruent, mood anxious. Thoughts linear, logical, no signs of hallucinations or delusions. Client Response/Progress/Benefit: []Client was an engaged participant AEB attentive to others, contributing when elicited by therapist and taking notes throughout. Connected with group topic of perspective and the impacts of one?s perspective on mental health. Client worked with the group to identify impact of a negative perspective. Client appeared to benefit from increasing understanding of mental health benefits of a positive perspective. Client stated he now has a positive perspective towards mental health treatment and life. Client reported identifying positives, following through with IOP, and work on his social supports have all helped improve his perspective. Will continue IOP tx to continue use of healthy coping skills, maintain gains, assist client with successful return to work and prevent decompensation.
--- NOTE | 2021-10-05 11:15 | BH.SGPN.GN ---
Behaviors/Verbalizations/Mental Status: []Client alert and oriented, casually dressed and groomed. Eye contact good. Motor activity appropriate. Speech within normal limits. Affect congruent, mood euthymic. Thoughts linear, logical, no signs of hallucinations or delusions. Client Response/Progress/Benefit: []Pt did well to remain attentive throughout session, AEB providing input throughout discussion. Engaged as group reviewed the importance of taking a strengths-based approach in order to foster a healthier perspective and better manage mental health symptoms. Completed strengths exploration worksheet and identified personal strengths to include: cooperation, self-control, forgiveness, honesty, and kindness. Pt reported he will improve his strengths by reaching out to people who could benefit from his strengths, practicing self-compassion, and planning activities he enjoys. Benefited from identifying personal strengths and strategies for enhancing use of identified strengths. Pt demonstrating progress AEB self-report of improved mood stability and increased socializing. Pt to continue IOP tx to improve emotional regulation skills, further reduce isolation, and improve overall functioning. Narrative Note: []
--- NOTE | 2021-10-06 09:00 | BH.SGPN.GN ---
Behaviors/Verbalizations/Mental Status: []Client alert and oriented, casually dressed and groomed. Eye contact good. Motor activity appropriate. Speech within normal limits. Affect congruent, mood anxious and dysthymic. Thoughts linear, logical, no signs of hallucinations or delusions. Reviewed client?s symptom tracker, no risk for suicidal ideation, plan, or intent as of 10/06/21 Client Response/Progress/Benefit: []Client responded well to session, willing to share and receptive of support from peers. Client reports feeling thankful this morning. Shared that although he is dealing with a significant stressor, he does have several supports who are willing to help. Discussed stressor as ongoing issues involving his short-term disability claim and was informed, he would again not be receiving a paycheck this week. Vented frustrations with the company processing his claim and expressed concerns about meeting upcoming financial responsibilities. Pt did well to identify what is within his control in the situation and steps he can take today to address the issue as best as possible and then prevent from further ruminating. Noted benefitting from this discussion as he struggled with significant rumination the previous night. Shared he did go for a walk and attempt using some grounding skills which he believes prevented further sx escalation. Progress remains contingent on client?s ability to manage this work-related stressor. Will continue IOP tx to prevent decompensation and continue to improve anxiety management and thought challenge skills as client works to transition back to work. Narrative Note: []
--- NOTE | 2021-10-06 12:12 | PCM.BH.PN_ITS ---
Progress Note Progress Note: History of Present Illness/Interim History: [] Patient is a 26-year-old single male who is seen in follow-up at the [facility] behavioral health IOP program. I last saw the patient 2 weeks ago and at that time his dose of Zoloft was increased to 100 mg due to his anxiety and panic attacks. The patient states that he has seen may be slight improvement but not much in the last 2 weeks. He feels that this is because his financial stresses have increased greatly in the past 2 weeks due to being off work and his unemployment money getting delayed. He does feel he will get it eventually but the financial stress is getting more intense and has made him more anxious. He feels he is making good progress in the IOP program and learning valuable skills. He is planning to return to work in about 2 weeks time. He had 1 panic attack this week and he only took 1 Xanax in the last 2 weeks. His appetite and sleep remained good. His mood is euthymic. He denies any passive thoughts of , suicidal ideation, homicidal ideation, hallucinations or delusions. He is able to drive to the IOP program alone and do fine. Current Psychiatric Medications: [] Zoloft 100 mg p.o. daily (dose increased 2 weeks ago); Xanax 0.25 mg p.o. as needed for panic attack (took 1 in the last 2 weeks). Mental Status Examination: [] Patient is a 26-year-old male who is seen wearing a mask due to the pandemic and has a ascencio and appears normal for stated age. He is casually dressed and groomed with good hygiene. He has no psychomotor agitation or retardation. He is ambulatory with a normal gait. Eye contact is good and speech is normal rate and rhythm and fluent with no pressure. Mood is euthymic. Thought content: The patient has no evidence of passive thoughts of , suicidal ideation, homicidal ideation, hallucinations or delusions. Patient is worried about his financial state. Reality testing is intact. Thought process is goal-directed and organized. Judgment is intact. Insight is good. Impulsivity is low. Diagnoses: [] 1. Generalized anxiety disorder 2. Panic disorder 3. Work and financial issues Plan: [] The patient will continue the IOP program at [facility] as the structure, support, education and group therapy will hopefully prevent worsening of the patient's symptoms. He felt safe during the interview and if it anytime he does not feel safe he agrees to let us know or go to the emergency room. The risks, options, possible complications and side effects of the medications were again discussed with the patient and he understands and accepts these. The patient will continue on the current dose of Zoloft and I will see the patient in follow-up in 2 weeks. If he is not much better we will increase the dose of Zoloft at that time. He will continue to follow-up with his outpatient providers also.
--- NOTE | 2021-10-06 15:45 | BH.MDN_ITS ---
Multi-Disciplinary Note - Note 45-min Individual Time Started:: 10:39 Date: 10/06/21 Purpose of session/treatment goals addressed:: Pt responded well to session, open to meeting with therapist. Reported he has been struggling with significant negative thinking since yesterday morning when he was informed by his employer that his short-term disability pay would again be withheld due to ongoing issues with paperwork regarding his claim. Pt shared feeling overwhelmed, angry, and defeated as a result. Discussed that a continued lack of income is beginning to create significant financial strain and that he is beginning to worry about his ability to meet his financial responsibilities if he is not paid within the next week. Pt expressed ?it just feels like I was finally making progress with my mental health and am ready to get back to work and now they do this to me. It?s like as soon as I take one step forward I get pulled back?. Therapist and pt spent time challenging thoughts of backtracking by highlighting areas in which pt has displayed progress thus far, specifically focusing on progress in his ability to cope with his current stressor compared to how he may have coped in the past. Reports increased use of grounding and mindfulness skills which has helped prevent pt from escalating to point of panic. Additionally, noted taking steps to begin more actively challenging his thoughts but continues to struggle in this area. Reports wanting to focus on improving stress management and thought challenging skills moving forward. Receptive of psychoeducation on rumination and reports connecting with the concept of ruminating causing him to ?suffer over and over again?. Shared his own ruminating thoughts impeding his ability to enjoy the present moment or focus on any positives. Receptive of discussing strategies for addressing and reducing time spent ruminating and pt reports connecting with identifying what aspects are in his control, creating a plan for these, and then finding an activity that requires cognitive focus in order to prevent from absently returning to his stressor. Worked with therapist to apply this strategy to addressing current anxieties causing rumination. Pt identified that following up with HR is what is within his control to do today and that he can then call a support to vent afterward for 5-10 minutes but will limit it to that so as to not enable continued rumination. Shared he will then spend the afternoon drywalling his new house as this will will be physical and provide emotion release as well as give him a concrete task to focus on. Eye Contact:: Good Motor Activity:: Appropriate Appearance:: Casual Speech:: Appropriate Mood:: Anxious, Dysthymic Affect:: Congruent Thoughts:: Linear, Logical, Other - ruminating on current work related stressor Staff Interventions:: thought challenging, psychoeducation on: - rumination, CBT techniques, mindfulness skills - reviewed mindfulness skills for addressing anxiety, discharge planning - specifically related to return to work plan, reviewed DSM-5, goal setting - adjusted goals for remainder of IOP Client Response:: Pt responded well to session, open to meeting with therapist. Reported he has been struggling with significant negative thinking since yesterday morning when he was informed by his employer that his short-term disability pay would again be withheld due to ongoing issues with paperwork regarding his claim. Pt shared feeling overwhelmed, angry, and defeated as a result. Discussed that a continued lack of income is beginning to create significant financial strain and that he is beginning to worry about his ability to meet his financial responsibilities if he is not paid within the next week. Pt expressed ?it just feels like I was finally making progress with my mental health and am ready to get back to work and now they do this to me. It?s like as soon as I take one step forward I get pulled back?. Therapist and pt spent time challenging thoughts of backtracking by highlighting areas in which pt has displayed progress thus far, specifically focusing on progress in his ability to cope with his current stressor compared to how he may have coped in the past. Reports increased use of grounding and mindfulness skills which has helped prevent pt from escalating to point of panic. Additionally, noted taking steps to begin more actively challenging his thoughts but continues to struggle in t his area. Reports wanting to focus on improving stress management and thought challenging skills moving forward. Receptive of psychoeducation on rumination and reports connecting with the concept of ruminating causing him to ?suffer over and over again?. Shared his own ruminating thoughts impeding his ability to enjoy the present moment or focus on any positives. Receptive of discussing strategies for addressing and reducing time spent ruminating and pt reports connecting with identifying what aspects are in his control, creating a plan for these, and then finding an activity that requires cognitive focus in order to prevent from absently returning to his stressor. Worked with therapist to apply this strategy to addressing current anxieties causing rumination. Pt identified that following up with HR is what is within his control to do today and that he can then call a support to vent afterward for 5-10 minutes but will limit it to that so as to not enable continued rumination. Shared he will then spend the afternoon drywalling his new house as this will will be physical and provide emotion release as well as give him a concrete task to focus on. Risks/Concerns:: Client denies any suicidal ideations, plan, or intent as of this date. Progress Toward Goals/Plan:: Client has been responding mostly well to treatment and is demonstrating some progress towards treatment goals. Client has been using healthy coping skills of deep breathing, affirmations, taking breaks, and grounding skills to better manage anxiety. Client reports that he has been able to manage his anxiety before escalating to crisis as a result but reports an influx in anxiety and depression related to current financial stressors related to work, which has impacted ability to see overall progress as a result. Client?s DSM-5 scores have potentially been impacted by this recent increased in financial stress as well. DSM-5 scores have decreased by 3% since admission which may be due to client continued focus on this recent stressor. Client continues to struggle with ruminations, distorted thinking patterns, and communication. Client will continue IOP tx to promote use of healthy coping skills, improve daily functioning, and reduce anxiety symptoms as pt prepares to return to work. Time Stopped:: 11:19
--- NOTE | 2021-10-06 16:00 | BH.MTP_ITS ---
Treatment Plan Review Date of Admission:: 09/07/21 Date of Treatment Plan Review:: 10/06/21 Admitting Diagnoses:: Generalized anxiety disorder, Panic disorder Current Diagnoses:: Generalized anxiety disorder, Panic disorder Patient's Response to Treatment:: Client's engagement has increased within the last two weeks as client is contributing more to discussions, connecting with peers, and providing encouragement to others. This is an improvement as client was very passive for the first two weeks of treatment. Client's attendance is consistent and client responds well to gentle thought challenging and homework. Client continues to report regularly practicing the skills he has learned in treatment with varying success. Consistently reports use of grounding and mindfulness skills, but struggles at times to actively proactive challenging his own use of distorted thinking patterns in the moment. Status of Current Problems and Symptoms: Problems are ongoing. Client recently has been working to manage increased stress related to his short-term disability claim and withholding of payment which has created significant financial strain for client. As a result, client reports increased sx of depression, hopelessn ess, frustration, and feeling stuck. Additionally, notes increased rumination over the past week as a result of this as well. However, client reports feeling more motivated, fewer panic attacks and increased ability to manage anxiety before reaching point of crisis, as well as readiness to return to work by upcoming return date. Client continues to use negative self-talk and has a hard time accepting and coping with the unknown, but he is improving. Problem #1 Problem Name:: Anxiety, panic attack, rumination Status of Goals:: Objective 1- partially complete. Client has gained insight into better understanding what anxiety is and specific awareness of his personal anxiety warning signs and panic triggers. Client reports reduced panic from several times a day to 1-2x per week. Client?s DSM-5 scores for anxiety have decreased by 18% since admission, despite recent stressor causing significant rumination and worry over the past week. Client also has been reporting improved ability to proactively use calming skills and take breaks when feeling overwhelmed. Client using walking, talking to supports, and grounding skills to manage anxiety. Objective 2- partially complete with ongoing work encouraged. Client reports recognizing when he is engaging in rumination and tries to challenge these thoughts but struggles significantly with ability to independently do so. Objective #3. Complete with continued work encouraged. Pt reports increased confidence in traveling distances outside of the hospital?s immediate radius and feels more comfortable in continuing to challenge himself to work on actively doing so. Team Recommendations:: Treatment team recommends that client continue working on thought challenge skills. Therapist will also help client create a return to work plan to help reduce work-related anxiety. Additionally recommended to analyze client caffeine intake and discuss potential connection between increased caffeine and morning anxiety.
--- NOTE | 2021-10-11 09:00 | BH.SGPN.GN ---
Behaviors/Verbalizations/Mental Status: [] Eye contact is good. Motor activity is appropriate. Appearance is casual. Speech is Appropriate. Mood is anxious. Affect is congruent. Thoughts are linear and logical. No evidence of psychosis. Reviewed daily check in sheet and no reports of suicidal ideations or intent. Client Response/Progress/Benefit: [] Pt participated at times during the group discussion. Attentive. Daily symptom tracker notes 3/5 for anxiety and /5 for irritability. Mental health wins include walking a ton outside this weekend. States that he had 40,000 steps. Briefly discussed how this helps his mental health. Increased social activities as he and his GF spent time with another couple which is something I haven't been able to do in a awhile. He believes that while he continues to have anxiety in these types of situations he is more confident in his ability to mange the anxiety. Primary stressor is plan to return to work next week. He mentioned that he is excited however very nervous. Benefited from group support, encouragement, and feedback. Progress noted per pt report. Will continue in IOP to prevent decompensation and improve functioning to return to work. Narrative Note: []
--- NOTE | 2021-10-11 10:05 | BH.SGPN.GN ---
Behaviors/Verbalizations/Mental Status: []Client alert and oriented, casually dressed and groomed. Eye contact good. Motor activity appropriate. Speech within normal limits. Affect congruent, mood euthymic. Thoughts linear, logical, no signs of hallucinations or delusions. Client Response/Progress/Benefit: []Client responded well to session AEB sharing and listening attentively to others. Client nodded and took notes throughout group discussion of the definition and impacts of anxiety, its benefits, as well as when it becomes abnormal. Clinician provided psychoeducation on anxiety diagnoses and the anxiety triangle of physical symptoms, safety behaviors, and common anxious thoughts. Client identified physical symptoms of anxiety as including nausea, paleness, and extremely high heart rate. Connected with discussion reviewing anxiety safety behaviors and reported personal safety behaviors as avoidance, focusing on other tasks, and ignoring anxiety causing situations. Client appeared to benefit from increased knowledge of anxiety diagnoses and causes, as well as improved self awareness of anxiety symptoms. 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 Narrative Note: []
--- NOTE | 2021-10-11 11:10 | BH.SGPN.GN ---
Behaviors/Verbalizations/Mental Status: []Client alert and oriented, casually dressed and groomed. Eye contact good. Motor activity appropriate. Speech within normal limits. Affect congruent, mood anxious and euthymic. Thoughts linear, logical, no signs of hallucinations or delusions. Client Response/Progress/Benefit: []Client an attentive and actively engaged participant AEB listening, taking notes, and providing input to discussion, this displays progress compared to level of engagement in prior groups. Reviewed safety behaviors he engages in that reinforce anxiety, identifying shutting down as one he often turns to. Attentive during psychoeducation on mindfulness coping skills and their impact on mental health wellness. The group worked together to brainstorm anxiety reduction strategies. Client reported he will practice aromatherapy, using calming sounds, and massage as ways to help manage anxious symptoms. Client seemed to benefit from increased repertoire of anxiety reduction skills. Client will continue IOP tx to continue to encourage implementation of healthy coping skills for managing anxiety, reduce rumination, as well as prevent decompensation as client works towards transitioning back to work. Narrative Note: []
--- NOTE | 2021-10-12 09:00 | BH.SGPN.GN ---
Behaviors/Verbalizations/Mental Status: []Client alert and oriented, casually dressed and groomed. Eye contact good. Motor activity appropriate. Speech within normal limits. Affect constricted, mood euthymic. Thoughts linear, logical, no signs of hallucinations or delusions. Reviewed client?s symptom tracker, no risk for suicidal ideation, plan, or intent as of 10/12/21 Client Response/Progress/Benefit: []Client responded well to session, attentive and receptive to feedback on how to help client transition back to work. Client reports feeling hopeful and tired this morning as client is anxious about returning to work, but recognizes that he is in a better place in his mental health now. Client shared acknowledging his strengths and communicating with his work supports has helped client feel more confident in returning. Client shared he had a good weekend and he enjoyed the warm weather yesterday which was self-care. Appeared to benefit from reflecting on his progress and strengths. Client will continue IOP tx to promote work-related functioning, further reduce anxiety, and increase self-confidence. Narrative Note: []
--- NOTE | 2021-10-12 10:08 | BH.SGPN.GN ---
Behaviors/Verbalizations/Mental Status: []Client alert and oriented, casually dressed and groomed. Eye contact good. Motor activity appropriate. Speech within normal limits. Affect congruent, mood anxious and euthymic. Thoughts linear, logical, no signs of hallucinations or delusions. Client Response/Progress/Benefit: [] Client responded well to session AEB client taking notes, listening attentively to others, and providing some input throughout. Group discussed the origin of coping skills, examples of unhealthy coping, and why we utilize them. Client identified fear and shutting down as personal barriers to using healthy coping skills. Participated in experiential activity, providing creative solutions and encouragement to his peers. Client was attentive throughout group processing, taking notes and nodding throughout discussion of the importance of external supports and internal coping skills. Appeared to benefit from increased knowledge of internal coping skills and identifying personal barriers to consistent skill application. Client will continue IOP treatment to increase anxiety management skills and thought challenging as he transitions back to work. Narrative Note: []
--- NOTE | 2021-10-12 11:10 | BH.SGPN.GN ---
Behaviors/Verbalizations/Mental Status: []Client alert and oriented, casually dressed and groomed. Eye contact good. Motor activity appropriate. Speech within normal limits. Affect congruent, mood euthymic. Thoughts linear, logical, no signs of hallucinations or delusions. Client Response/Progress/Benefit: []Client responded well to session, taking notes and nodding frequently. Group discussed the different categories of coping skills which included distraction, emotional release, grounding, self-love, and thought challenging. Client's coping skill menu included: exercise, talk to someone for emotional release, paced breathing, dedicate time for relaxation, and identify daily positives. Appeared to benefit from increasing repertoire of healthy coping skills. Will continue tx to prevent decompensation, maintain gains, and assist pt with transition back to work.
--- NOTE | 2021-10-13 09:04 | BH.SGPN.GN ---
Eye contact is good. Motor activity is appropriate. Appearance is casual. Speech is Appropriate. Mood is euthymic and anxious. Affect is congruent. Thoughts are linear and logical. No evidence of psychosis. Reviewed daily check in sheet and no reports of suicidal ideations or intent. Behaviors/Verbalizations/Mental Status: []Pt responded well to session AEB pt sharing thoughts and feelings, listening attentively to others and providing supportive feedback. Pt stated feeling slightly low this morning and attributes this to the [place] and dark weather outside, sharing that his mood is often impacted by bad weather days. Receptive of supportive feedback and suggestions for improving mood on dreary days. Pt went on to discuss feeling anxious yet excited to be returning to work on Monday and shared several skills he has learned to improve his ability to manage workplace stress and anxiety. Appeared to benefit from supportive group environment and reflecting upon progress in improved anxiety management skills. Shared plans to sit down with his supervisor [employer] to discuss expectations for return to work as well. Pt to continue IOP to continue use of healthy coping and thought challenge skills, reduce rumination, and prevent decompensation as pt transitions back to work. Client Response/Progress/Benefit: [] Narrative Note: []
--- NOTE | 2021-10-13 10:06 | BH.SGPN.GN ---
Behaviors/Verbalizations/Mental Status: []Client alert and oriented, casually dressed and groomed. Eye contact good. Motor activity appropriate. Speech within normal limits. Affect congruent, mood euthymic. Thoughts linear, logical, no signs of hallucinations or delusions. Client Response/Progress/Benefit: []Client responded well to session AEB sharing and listening attentively to others. Client reported consequences of unmanaged anger as emotional damage, low self-esteem, and fear of failure. Group discussed the benefits of managed anger and anger as a secondary emotion. Client completed anger iceberg worksheet, reporting outward personal signs of anger as isolating, blaming others, and yelling. Identified underlying emotions that contribute to anger as worry, fear, and anxiety. Appeared to benefit from increased knowledge of anger as a secondary emotion and increased self-awareness of signs and emotions that contribute to anger. Will continue IOP treatment to continue decreasing self-isolation and increase healthy communication with supports to improve daily functioning. Narrative Note: []
--- NOTE | 2021-10-13 14:35 | BH.MDN ---
Multi-Disciplinary Note - Note 45-min Individual Time Started:: 11:10 Date: 10/13/21 Purpose of session/treatment goals addressed:: Goal was to review progress and address client tx plan goal #1. Another goal was to discuss plan of care and return to work, as well as establish outpatient counseling and psychiatry services. Eye Contact:: Good Motor Activity:: Appropriate Appearance:: Casual Speech:: Appropriate Mood:: Euthymic, Anxious Affect:: Congruent Thoughts:: Linear, Logical, No evidence of hallucinations/delusions noted Staff Interventions:: motivational interviewing, CBT techniques, strengths perspective, other - completed return to work plan Client Response:: Client responded well to session, open to meeting with therapist. Reported feeling ?a little bit better since this morning?, discussing that the weather had been impacting his mood this morning. Noted that getting some coffee participating in process group helped to improve his mood and energy levels. Client and therapist discussed his regular caffeine intake and the potential impacts of caffeine on reinforcing anxiety levels, as client often consumes 1-2 energy drinks or coffee throughout day when in IOP groups. Client reports understanding and discussed plans to better monitor caffeine levels. Went on to discuss overall feeling more confident in his management of anxiety and though he is nervous about doing so, feels ready to return to work on an intermittent basis next week. Further indicated beginning to think of skills he would most benefit from utilizing during times of increased anxiety while in the workplace. Client shared taking a break and walking outside around the building, listening to a calming playlist he has created for himself, practicing deep breathing, or the 5-senses grounding activity as skills he would most benefit from. Noted plans to positive affirmations around his workspace as well. Discussed continuing to struggle at times with knowing how to challenge his distortions and was receptive of suggestion to identify several thought challenging questions he can also display in his work environment. Worked with client to review return to work plan and complete return to work paperwork, indicating plan for client to return on an intermittent schedule starting 10/18 with full return beginning the week of 11/01. Additionally, worked with client to complete initial paperwork for outpatient counseling and psychiatry referral to [place] [id number]. Risks/Concerns:: Client denies any suicidal ideations, plan or intent as of 10/13/21. Progress Toward Goals/Plan:: Client continues to make progress AEB self-report of reduced intensity of symptoms, improved functioning at home, and reported readiness to return to work. Client shared increased self-care, improved thought challenging, and more consistent application of anxiety management skills. Reports he has not experienced a panic attack in over a week. Client continues to report some anxiety about return to work but has completed a return to work plan, expressed ongoing difficulties with in the moment management of ruminating thoughts, and at times continues to experience irritability secondary to anxiety. Will come to [facility] tx three days a week to promote gains and further improve functioning while transitioning back to work. Time Stopped:: 11:51
== END 2021-10-18 23:59 ==
LOC: BHIOP 07:31
PROVIDERS: Visit Provider Psychiatry & Neurology Psychiatry
DX: F41.1 Generalized anxiety disorder (principal); F41.0 Panic disorder [episodic paroxysmal anxiety]; Z79.899 Other long term (current) drug therapy
CPT/HCPCS: S9480; 90834; 90853

== ENCOUNTER 2021-10-19 07:38 | Outpatient (RCR) | payer BC, SELFPAY ==
[2021-10-19 00:38] VITALS: BP 119/76; PULSE 64
--- NOTE | 2021-10-19 09:07 | BH.MDN ---
Multi-Disciplinary Note - Note 45-min Individual Time Started:: 09:04 Date: 10/19/21 Purpose of session/treatment goals addressed:: Review progress, current symptoms, and recent return to work. Discharge and aftercare planning. Eye Contact:: Good Motor Activity:: Appropriate Appearance:: Neat, Casual Speech:: Appropriate Mood:: Euthymic, Anxious Affect:: Full Thoughts:: Linear, Logical, No evidence of hallucinations/delusions noted Staff Interventions:: motivational interviewing, discharge planning, strengths perspective, other - reviewed skills to continue to address anxiety and maintain gains as he transitions back to full-time employment Client Response:: Pt spent majority of the session reviewing his first day back to work yesterday. Discussed experiencing anxiety and distorted thoughts of ?what if I can?t do this? or ?what if I go back and I panic? throughout the weekend. Shared trying to use healthy distraction and reviewing his anxiety management skills during these times. Expressed peak anxiety upon waking yesterday morning in which he described chills, shakiness, and initial thoughts of I can?t do this; however, reports he was able to apply deep breathing skills and recite several affirmational statements which was helpful. Noted the workday had gone ?a lot better than expected? 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 Shared opening up to a few coworkers about his mental health needs which he reports he would not have previously felt comfortable doing. Showed therapist several positive self-talk statements he hung around his work space for encouragement and discussed plans to go back through his treatment binder to identify specific skills he would like to create visual reminders of as well. Reports being glad he is returning on a reduced schedule this week and next, but feels confident in his overall ability to successfully transition back to full-time employment. Risks/Concerns:: Denies SI, plan, or intent today. Progress Toward Goals/Plan:: Significant progress noted AEB pt successful transition back to work yesterday, as well as self-report of improved symptom management. Pt reports an overall reduction in symptoms of anxiety which cause panic and impeded his ability to function at baseline. Pt does continue to struggle with distortions and anxiety, though at a significantly reduced severity. Denies panic and reports increased confidence in his ability to cope during these times. Reports improved communication with supports regarding his mental health needs as well. Plan is for pt to remain in IOP treatment as he transitions back to full-time employment on 11/01/21. Pt is currently in the process of establishing with [id number] for individual counseling and psychiatric services reports he was informed they would contact him this week to schedule an initial intake appointment for this month. Will continue to follow-up. Time Stopped:: 09:45
--- NOTE | 2021-10-19 10:05 | BH.SGPN.GN ---
Behaviors/Verbalizations/Mental Status: [] Eye contact is good. Motor activity is appropriate. Appearance is casual. Speech is Appropriate. Mood is anxious and euthymic. Affect is congruent. Thoughts are linear and logical. No evidence of psychosis. Client Response/Progress/Benefit: [] Pt was an active participant in group discussion AEB taking notes and providing input throughout. Attentive during psychoeducation reviewing internal and external obstacles and provided examples throughout. Participated in the reflection activity in which clients gardenia pictures depicting their current and desired reality and shared with the group. Pt shared in current reality he feels like he?s stuck on a asael wheel that?s spinning out of control and he?s gaining the ability to slow it down. Pt stated when anxious he feels out of control and struggles to reach out to supports for help. Pt reported this has improved significantly over the past few weeks as before her would not have been able to even slow down the asael wheel at all. Desired reality is to have the tools to manage life stressors and anxious thoughts, allow people in, and feel more grounded. Benefited from group by increasing current awareness and expectations for progress. Pt to continue IOP to further improve daily functioning, and promote healthy coping as he transitions back to work. Narrative Note: []
--- NOTE | 2021-10-19 11:10 | BH.SGPN.GN ---
Behaviors/Verbalizations/Mental Status: []Client alert and oriented, neatly dressed and groomed. Eye contact good. Motor activity appropriate. Speech within normal limits. Affect constricted, mood euthymic. Thoughts linear, logical, no signs of hallucinations or delusions. Client Response/Progress/Benefit: []Client an active participant, encouraging peers and contributed as group brainstormed ideas on how to cope with internal barriers that keep clients stuck from moving towards goals. Able to identify barriers to desired reality. Identified barriers to current reality to include: isolation, lack of motivation, and negative self-talk. Client wants to work on overcoming the barrier of negative self-talk by writing out five things he is good out when he is negative with himself. Benefited from group by identifying obstacles and solutions to desired reality. Will continue IOP tx to improve work-related functioning, combat distortions, and increase self-confidence. Narrative Note: []
--- NOTE | 2021-10-20 09:00 | BH.SGPN.GN ---
Behaviors/Verbalizations/Mental Status: []Eye contact is good. Motor activity is appropriate. Appearance is casual. Speech is Appropriate. Mood is euthymic. Affect is congruent. Thoughts are linear and logical. No evidence of psychosis. Reviewed daily check in sheet and no SI indicated. Client Response/Progress/Benefit: P[]Pt responded well to session, attentive and providing supportive statements to peers. Pt reports feeling excited and tired this morning. Pt is getting close to discharging from IOP tx and he reflected on his progress. Pt shared his communication with supports has improved a lot which has improved pt's relationships and work experience. Pt reported he has also been able to cope with anxiety and stressor better and pt accomplishes a lot more throughout the day. Pt shared his stressor today is that his girlfriend will be gone for a week, but pt plans to call her and talk with her throughout the day. Appeared to benefit from reflecting on progress and connecting with peers. Pt will continue IOP tx for one more week to promote gains and further improve work-related functioning. Narrative Note: []
--- NOTE | 2021-10-20 10:05 | BH.SGPN.GN ---
Behaviors/Verbalizations/Mental Status: []Client alert and oriented, casually dressed and groomed. Eye contact good. Motor activity appropriate. Speech within normal limits. Affect congruent, mood euthymic. Thoughts linear, logical, no signs of hallucinations or delusions. Client Response/Progress/Benefit: []Client responded well to session AEB taking notes and listening attentively to others. Client was engaged throughout group discussion of the benefits of healthy relationships and factors that can contribute to relationships becoming unhealthy, nodding throughout and taking notes. Client participated in experiential activity modeling healthy relationship behaviors, contributing to group problem solving and providing supportive feedback to others. Appeared to benefit from increased knowledge of the benefits of healthy relationships and characteristics of unhealthy relationships. 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 Narrative Note: []
--- NOTE | 2021-10-20 11:13 | BH.SGPN.GN ---
Behaviors/Verbalizations/Mental Status: [] Client alert and oriented, casually dressed and groomed. Eye contact fair to good. Motor activity appropriate. Speech within normal limits. Affect congruent, mood euthymic. Thoughts linear, logical, no signs of hallucinations or delusions. Client Response/Progress/Benefit: [] Client responded well to session, engaged and taking notes. Attentive during psychoeducation about characteristics of healthy, unhealthy, and abusive relationships. Able to identify relationship strengths. Client reported wants to work on being more open with his thoughts and feelings. Client stated he typically reverts to shutting down, which he recognizes doesn't help his relationships because people don't know what he needs. Appeared to benefit from reflecting upon personal relationship strengths, as well as brainstorming strategies to build healthier relationships. Pt recommended to continue IOP tx to assist client with transition to work, maintain gains and prevent decompensation.
--- NOTE | 2021-10-20 12:04 | PCM.BH.PN_ITS ---
Progress Note Progress Note: History of Present Illness/Interim History: [] The patient is a 26-year-old male who is seen in follow-up at the [facility] behavioral health IOP program. I last saw the patient 2 weeks ago and at that time no medication changes were made. The patient states he has been doing well for the past few weeks and feels that his anxiety is much improved. He returned to work several days ago and states that it is good to be back at work. He is functioning well at work. He states that the day before he went back to work he did have his only panic attack in the past 2 weeks and he did take one Xanax for that which relieved it. But overall his anxiety is much improved. The fact that he is working has lessened his perception of his financial stress because he is now making money. Mood is euthymic. Appetite and sleep remain good. He denies any passive thoughts of , suicidal pako ation, homicidal ideation, hallucinations or delusions. He has been able to drive to work and to the IOP program alone and has done well. Current Psychiatric Medications: [] Zoloft 100 mg p.o. daily (dose increased 1 month ago); Xanax 0.25 mg p.o. as needed for panic attack (took one in the last 2 weeks). Mental Status Examination: [] The patient is a 26-year-old male who is seen wearing a mask due to the pandemic and appears normal for stated age. He is ambulatory with a normal gait. He is casually dressed and groomed with good hygiene. He has no psychomotor agitation or retardation. Eye contact is good and speech is normal rate and rhythm and fluent with no pressure. Mood is euthymic. Thought content: The patient has no evidence of passive thoughts of , suicidal ideation, homicidal ideation, hallucinations or delusions. He is glad to be back at work and feels hopeful for the future. Thought process is goal-directed and organized. Judgment is intact. Insight is good. Impulsivity is low. Diagnoses: [] One. Generalized anxiety disorder Two. Panic disorder Three. Work and financial issues Plan: [] The patient will continue the IOP program at [facility] as the structure, support, education and group therapy have benefited him. He may discharge soon if he continues to do well. He felt safe during the interview and if it anytime he does not feel safe he will agrees to let us know or go to the emergency room.. The risk, options, possible complications and side effects of medications were again discussed with the patient and he unders tands and accepts these. The patient will continue the same dose of Zoloft as he does not feel he needs an increase in dose. He will continue to follow-up with his outpatient psychiatric and medical providers.
--- NOTE | 2021-10-22 09:00 | BH.SGPN.GN ---
Behaviors/Verbalizations/Mental Status: [] Eye contact is good. Motor activity is appropriate. Appearance is neat. Speech is Appropriate. Mood is euthymic. Affect is flat. Thoughts are linear and logical. No evidence of psychosis. Reviewed daily check in sheet and no reports of suicidal ideations or intent. Client Response/Progress/Benefit: [] Pt participated when prompted. Attentive. Daily symptom tracker notes 09/25 for anxiety. Mental health win was been doing good at work. Shared that yesterday was his second day back to work since March. States I was able to complete tasks well despite not being there in over 6 months. Reports that he is managing triggers at work with limited anxiety. I'm still anxious but I'm doing it. His transition back to work is going well so far. Increased confidence. Progress noted per pt report. Benefited from group support, encouragement, and feedback. Will continue in IOP to maintain gains and transition back to work. Narrative Note: []
--- NOTE | 2021-10-22 11:13 | BH.SGPN.GN ---
Behaviors/Verbalizations/Mental Status: []Client alert and oriented, casually dressed and grooming appropriate. Eye contact good. Motor activity appropriate. Speech within normal limits, quiet. Affect congruent. mood euthymic and anxious. Thoughts linear, logical, no signs of hallucinations or delusions. Client Response/Progress/Benefit: []Client engaged in session AEB contributing some to discussion and taking notes throughout. Engaged in discussion on what prevents moving on to the ?next chapter? in our life and the importance of problem-solving solutions to address identified barriers. Participated as group brainstormed the components of A,B,C,D,E problem solving method and various strategies for promoting follow-through in each stage. Client identified negative self-talk and poor boundaries as barriers preventing him from moving to the next chapter in mental health recovery. Identified honestly communicating with supports and reminding himself of his personal strengths as a realistic steps he can take in the problem-solving process. Appeared to benefit from learning about problem solving method and practice applying this to personal barriers identified. Progress noted in client self-report of increased confidence and ability to manage sx of anxiety. Will continue IOP tx to maintain stability and continue to promote healthy change behaviors as client transitions back to full-time employment. Narrative Note: []
--- NOTE | 2021-10-26 09:06 | BH.SGPN.GN ---
Behaviors/Verbalizations/Mental Status: []Client alert and oriented, casually dressed and groomed. Eye contact good. Motor activity appropriate. Speech within normal limits. Affect congruent, mood euthymic and anxious. Thoughts linear, logical, no signs of hallucinations or delusions. Reviewed client?s symptom tracker, no risk for suicidal ideation, plan, or intent as of 10/26/21 Client Response/Progress/Benefit: [] Client responded well to session, attentive and openly discussed areas of progress with group. Client reports feeling thankful this morning as he has been continuing to make progress in his ability to manage symptoms of anxiety as he transitions back to full-time employment. Discussed feeling supported within the workplace which has also aided in client feeling encouraged to continue to use his anxiety management skills in the workplace. Discussed some anxiety regarding long-term maintenance but did well to identify several skills he can continue to use if he begins to struggle. Appeared to benefit from reflecting on his progress, as well as support from the group. Client will continue IOP tx to continue to promote mood stability, improve consistent skill application as he transitions to full-time employment, and prevent decompensation. Narrative Note: []
--- NOTE | 2021-10-26 10:10 | BH.SGPN.GN ---
Behaviors/Verbalizations/Mental Status: []Client alert and oriented, casually dressed and groomed. Eye contact good. Motor activity appropriate. Speech within normal limits. Affect congruent, mood euthymic. Thoughts linear, logical, no signs of hallucinations or delusions. Client Response/Progress/Benefit: []Client responded well to session AEB listening attentively to others. Client was engaged throughout group discussion defining boundaries and their importance. Client took notes and nodded throughout, appearing to benefit from the group environment. Clinician provided psychoeducation on types of boundaries, including physical, material, and emotional. Client appeared to connect with the topic and benefit from increased knowledge of types of boundaries and self-awareness. 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 Narrative Note: []
--- NOTE | 2021-10-26 11:15 | BH.SGPN.GN ---
Behaviors/Verbalizations/Mental Status: []Client alert and oriented, casually dressed and groomed. Eye contact good. Motor activity appropriate. Speech within normal limits. Affect congruent, mood euthymic. Thoughts linear, logical, no signs of hallucinations or delusions. Client Response/Progress/Benefit: []Pt responded well to session AEB listening attentively to peers and providing input. Pt attentive during psychoeducation on the different boundary styles. Pt noted connecting most with the porous and flexible styles. Pt reports when he started IOP tx he was ?very porous? and had a hard time prioritizing his self-care. Now pt can communicate needs and take time for himself. Pt was given a handout on strategies for healthy boundary setting. Pt identified wanting to work on pausing and taking a breath before responding to people to improve boundary setting. Appeared to benefit from increasing insight to boundary setting and the impacts on mental health. Progress in self-report of improved mood and ability to function at work, scheduled to discharge later this week. Will continue IOP tx to promote gains and reinforce healthy coping skills. Narrative Note: []
--- NOTE | 2021-10-28 08:34 | BH.MDN ---
Multi-Disciplinary Note - Note 45-min Individual Time Started:: 10:40 Date: 10/28/21 Purpose of session/treatment goals addressed:: Reviewed progress on treatment plan in IOP. Finalized aftercare plans and reviewed outcome measurement. Eye Contact:: Good Motor Activity:: Appropriate Appearance:: Neat, Casual Speech:: Appropriate Mood:: Euthymic, Anxious Affect:: Full Thoughts:: Linear, Logical, No evidence of hallucinations/delusions noted Staff Interventions:: motivational interviewing, discharge planning, strengths perspective, reviewed DSM-5 Client Response:: Reviewed progress in IOP and on treatment plan goals. Pt was able to identify healthy anxiety management skills, strategies for better identifying and challenging thought distortions, his common anxiety triggers, and calming skills for managing these triggers in the moment. Discussed pt return to work and skills he will need to continue to implement in order to best maintain gains as he moves to full-time hours next week. Reviewed the importance of advocating for his mental health needs in the workplace and setting boundaries, especially as pt reports a potential for mandatory overtime in the next few months. Discusses work-life balance and means of maintaining [id number] outside of work to ensure mental health maintenance. According to DSM outcome measurement pt showed an overall symptom decrease of 57% since admission. Pt had some work related stressors this week and reports that he was able to utilize healthy communication and anxiety management skills, as well as thought challenging to work through these stressors. Reports feeling proud of this progress and increasingly confident in his ability to continue to maintain gains moving forward. Discussed plans for ongoing counseling to continue to improve thought challenging and anxiety management skills. Risks/Concerns:: no risks or concerns noted. Progress Toward Goals/Plan:: Progress noted. Pt has met treatment plan goals as noted above. DSM outcome measurements show a 57% decrease in overall symptoms since admission. DSM also shows a 100% reduction in scores for intrusive thoughts, 100% reduction on score in anger scale, and a 55% reduction on scores on the anxiety scales. Pt self-reports improved mood stability, improved communication with supports, successful return to work, and decrease in anxiety. Reports increased awareness and insight on health coping skills. Plan is to discharge as pt no longer meets criteria for IOP level of care.
--- NOTE | 2021-10-28 09:05 | BH.SGPN.GN ---
Behaviors/Verbalizations/Mental Status: [] Eye contact is good. Motor activity is appropriate. Appearance is casual. Speech is Appropriate. Mood is euthymic. Affect is flat. Thoughts are linear and logical. No evidence of psychosis. Reviewed daily check in sheet and no reports of suicidal ideations or intent. Client Response/Progress/Benefit: [] Pt participated when prompted. Attentive. Shared with the group that today is his last day in [facility]. He feels that he is more stable and confident in his ability to manage his anxiety. Reports that he does not view talking about mental health as a weakness. Gave examples of communicating his needs to co-workers which has proven to be very beneficial. Gave example of managing a significant anxiety triggers at work yesterday as well. He has been back to work for 2 weeks and feels hopeful about the future. The topic he felt most helpful in [facility] was cognitive distortions. Progress noted per pt report. Benefited from group support and encouragement. Will be discharged from [facility] today. Narrative Note: []
--- NOTE | 2021-10-28 11:20 | BH.SGPN.GN ---
Behaviors/Verbalizations/Mental Status: []Client alert and oriented, casually dressed and appropriately groomed. Eye contact fair. Motor activity appropriate. Speech WNL. Affect congruent, mood euthymic. Thoughts linear, logical, no signs of hallucinations or delusions. Client Response/Progress/Benefit: []Client responded well to session AEB client listening attentively to others and providing input during group discussion on the pay offs and costs of the different communication styles. Attentive during psychoeducation on interpersonal DBT skill JIMENEZ. Client reported he wants to work on continuing to open up and communicate with his supports. Client stated he has noticed things have improved since opening up to supports and wants to continue doing this. Client seemed to benefit from increasing awareness of healthy strategies to improve communication. Client has made significant treatment progress since starting IOP and will discharge today.
--- NOTE | 2021-10-28 13:37 | BH.DS_ITS ---
Discharge Summary - Demographics Date of Admission:: 09/07/21 Discharge Date: 10/28/21 Presenting Problems at Admission:: Pt is a 26-year-old male who was referred to the [facility] behavioral health IOP program by his primary care doctor in June 2021 for worsening anxiety. Reports a history of anxiety which worsens when alone or far from the hospital due to an episode occurring in August 2017 in which pt blood sugar dropped while at work resulting in his first panic attack. Pt reports the squad was called at this time and he has been afraid of something similar recurring since. At the time the patient had worked for 48 days straight and was on third shift and was not eating well. Since that time his anxiety has worsened and he has been unable to work and on FMLA from work since March 2021. Patient reports he tried medications in the past but they had limited benefit. No history of self-harm. His primary stressor is returning to work. Currently endorsing symptoms of panic 3-7x per week, rumination, fear of traveling too far from a hospital, low energy and concentration, current anxiety impeding ability to drive self places, isolation, and intrusive worries about having a heart attack. Current symptoms impeding ability to work, function at baseline, or travel places he typically would due to fears of being too far from hospital. Discharge Diagnoses:: Generalized anxiety disorder, Panic disorder Reason for Discharge:: Client has accomplished his treatment goals AEB overall symptom reduction, successful return to work, and self-report of applying healthy coping skills. Client no longer meets criteria for IOP tx and will transition to outpatient counseling. - Treatment Progress During Treatment & Response: Client responded well to treatment and made significant progress while in IOP. Client?s overall symptoms decreased by 57% per the DSM-5. Client reports seeing significant improvements in his anxiety management and ability to make his mental health priority by actively working to communicate his mental health needs with both himself and others. Client?s irritability decreased by 50%, anxiety decreased by 55%, intrusive thoughts by 100%, unexplained aches and pains by 80%, and problems with sleep by 100% since admission. Client was an active group member, had consistent attendance, and reported frequent application of coping skills. By the end of IOP tx, client was able to more actively engage in group, provide supportive feedback to peers, and take on leadership roles during the activities. Client was receptive during individual sessions and followed through with homework. Client developed many healthy coping skills including assertive communication and self-advocacy, self- compassion, thought challenging, and self-care. As a result client was able to successfully transition back to full-time employment following a 7 month leave of absence. Issues Still to be Addressed:: Client can continue to benefit from outpatient counseling to promote mood stability and maintain gains made in IOP. Client can continue to work on setting and maintaining healthy boundaries with coworkers, consistently communicating his mental health needs, challenging distorted thought patterns, continuing to avoid unhealthy coping skills such as shutting down or isolating, and reinforcing calming skills for his anxiety. Discharge Recommendations/Instructions:: Follow-up with [facility] for individual counseling and ongoing medication management. Contact your PCP in the meantime for continued medication management unill next scheduled appointment. Client was offered to participate in IOP aftercare, but client declined due to scheduling conflicts with work. Discharge Handout: Complete Discharge Handout with client on aftercare options and continuity of care.
--- NOTE | 2021-10-28 13:40 | BH.IGGP_ITS ---
Aftercare Plan - Demographics Treatment End Date:: 10/28/21 Psychiatrist:: Chel Ardon Psychiatrist Office #:: [phone] [facility] Therapist:: Cheri Tovar Therapist Phone #:: [phone] - Plan Details Progress/Aftercare Plan Details:: You have made progress in taking the brave step to address your mental health needs rather than pushing them aside or keep it to yourself. This is not an easy thing to do and deserves a lot of credit. Continuing to make time to recognize and use you coping skills when you?re struggling is going to be pitts to maintaining the progress you?ve made! Since beginning treatment, you have made strides in your overall ability to replace unhealthy ways of coping, like shutting down or bottling things up, with healthier skills. You are now more actively reaching out to supports and being honest about how you?re doing, challenging your thoughts, using positive self- talk, and proactively addressing your warning signs and potential triggers. This is most evident in the fact that you have been consistently using your calming skills and are able to better manage your anxiety as a result. Remember to check-in with yourself and ask ?Is this something within my control?? and ?Is there another way to think about this??. You are more actively advocating for your mental health needs and able to do so without allowing frustrations or setbacks to halt your progress! Be proud of the stress tolerance skills you have been using as well! Finally, you are successfully back at work! This is a HUGE accomplishment and highlights just how far you?ve come in your overall ability to better manage your mental health and make sure you have the support you need in place in order to continue to do so! Strategies for Success:: Opposite Action!!! ? do what will help you, even when your brain is saying ?This won?t work? or ?I can?t do it?, even when it feels uncomfortable, even when you are tempted to give up or fall back into unhealthy coping behaviors like isolating, bottling things up, or shutting down and not communicating with your supports. Doing the hard, uncomfortable, or the anxious thing is not always fun but it is often the healthier option. Regularly check- in with yourself and ask yourself how you are really doing. Do you recognize any of your warning signs? Are you going to be faced with a potential trigger soon? If you notice you are struggling, use your calming skills! Try engaging in a relaxing activity such as looking at affirmations or inspirational quotes, taking a walk, stepping away for a minute, or deep breathing. REMEMBER, external stressors impact us all and can often be outside our control, but this does not leave us helpless. During these times we get to decide how we want to respond! Remember, you are in control of your responses to external stressors! Challenge negative thought patterns by trying to look at things from the other perspective. Remember ?thoughts are thoughts, not facts?. Ask yourself ?How else can I think about this??, ?Do I have to give this thought value??, ?Is there evidence against this thought?, What would I say to someone else??, ?What would my supports say to me if I told them how I was feeling??. Continue to COMMUNICATE, COMMUNICATE, COMMUNICATE! Your supports won?t know how to help if you don?t let them be a part of the conversation. This includes communicating with yourself, your supports (even the ones you don?t always see eye to eye with), your employer, and your new therapist! Your mental health needs are important and deserve to be addressed! Keep challenging yourself to engage in activities that YOU enjoy and make YOU feel refreshed. These should be healthy activities that make you feel refreshed and get you engaged in something outside of work. Keep going to therapy! - Appointments Appointments/Referrals to Other Services:: Follow-up with [place] [id number] for individual counseling and ongoing medication management. Contact your PCP in the meantime for continued medication management unill next scheduled appointment. Client was offered to participate in [facility] aftercare, but client declined due to scheduling conflicts with work. - Medications Home Medications: Home Medications alprazolam [Xanax] 0.25 mg PO DAILY PRN PRN 09/08/21 cholecalciferol (vitamin D3) 5,000 unit PO DAILY 09/08/21 sertraline [Zoloft] 100 mg PO DAILY #30 tab 10/20/21
--- NOTE | 2021-10-29 08:36 | BH.MTP ---
Master Treatment Plan - Patient Information Program Physician:: Dr. Chel Kirkpatrick Primary Therapist:: RACHELLE Benedict - Estimated LOS Estimated LOS (in weeks):: 6 Problem/Goal #1 - Problem/Goal #1 Functional Impact: Pt is a 26-year-old male who was referred to the [facility] IOP program by his primary care doctor in June 2021 for worsening anxiety. Reports a history of anxiety which worsens when alone or far from the hospital due to an episode occurring in August 2017 in which pt blood sugar dropped while at work resulting in his first panic attack. Pt reports the squad was called at this time and he has been afraid of something similar recurring since. At the time the patient had worked for 48 days straight and was on third shift and was not eating well. Since that time his anxiety has worsened and he has been unable to work and on FMLA from work since March 2021. Patient reports he tried medications in the past but they had limited benefit. No history of self-harm. His primary stressor is returning to work. Currently endorsing symptoms of panic 3-7x per week, rumination, fear of traveling too far from a hospital, low energy and concentration, current anxiety impeding ability to drive self places, isolation, and intrusive worries about having a heart attack. Current symptoms impeding ability to work, function at baseline, or travel places he typically would due to fears of being too far from hospital. Problem/Goal #2 - Problem/Goal #2 Functional Impact: Pt is a 26-year-old male who was referred to the [facility] IOP program by his primary care doctor in June 2021 for worsening anxiety. Reports a history of anxiety which worsens when alone or far from the hospital due to an episode occurring in August 2017 in which pt blood sugar dropped while at work resulting in his first panic attack. Pt reports the squad was called at this time and he has been afraid of something similar recurring since. At the time the patient had worked for 48 days straight and was on third shift and was not eating well. Since that time his anxiety has worsened and he has been unable to work and on FMLA from work since March 2021. Patient reports he tried medications in the past but they had limited benefit. No history of self-harm. His primary stressor is returning to work. Currently endorsing symptoms of panic 3-7x per week, rumination, fear of traveling too far from a hospital, low energy and concentration, current anxiety impeding ability to drive self places, isolation, and intrusive worries about having a heart attack. Current symptoms impeding ability to work, function at baseline, or travel places he typically would due to fears of being too far from hospital.
== END 2021-10-28 12:40 | disposition home or self-care (01) ==
LOC: BHIOP 07:38
PROVIDERS: Visit Provider Psychiatry & Neurology Psychiatry
DX: F41.8 Other specified anxiety disorders (principal); F41.0 Panic disorder [episodic paroxysmal anxiety]
CPT/HCPCS: S9480; 90832; 90834; 90853